=== PATIENT | female | born 1995 | race American Indian/Alaskan Native ===

== ENCOUNTER 2016-06-06 09:53 | Emergency (ER) | payer MEDICAID, OTHER ==
[2016-06-06 09:53] VITALS: BMI 33.0
[2016-06-06 10:08] VITALS: O2SAT 97
--- NOTE | 2016-06-06 10:43 | ED PDOC ---
Arrival/HPI - General Chief Complaint: Lower Extremity Problem/Injury Time Seen by Provider: 06/06/16 10:15 Historian: Patient - History of Present Illness Narrative History of Present Illness (Text): 06/06/16 10:40 20yr old female presents today with right knee pain s/p fall yesterday. pt states she was running for weight loss and tripped and fell landing on the knee. pt states she is having pain with ambulation and flexion of the knee. pt describes the pain as sharp located over the anterior aspect of the knee worse with movement. no calf pain. denies numbness, weakness, tingling in the extremity. no fever/chills. took tylenol for pain without relief. no other complaints. Past Medical History - Provider Review Nursing Documentation Reviewed: Yes - Travel History Have you recently traveled outside [place] w/in the past 3 mons?: No - Past History Past History: No Previous - Infectious Disease Hx of Infectious Diseases: None - Tetanus Immunization Tetanus Immunization: Unknown - Reproductive Menopause: No - Past Medical History Past Medical History: No Previous - Cardiac Hx Cardiac Disorders: No Hx Hypertension: No - Pulmonary Hx Tuberculosis: No - Neurological HX Cerebrovascular Accident: No Hx Seizures: No - Hematological/Oncological Hx Cancer: No - Musculoskeletal/Rheumatological Hx Falls: No - Genitourinary/Gynecological Hx Sexually Transmitted Diseases: No - Psychiatric Hx Bipolar Disorder: Yes Hx Depression: Yes Hx Substance Use: No - Past Surgical History Past Surgical History: No Previous - Anesthesia Hx Anesthesia: Yes - Suicidal Assessment Feels Threatened In Home Enviroment: No Family/Social History - Physician Review Nursing Documentation Reviewed: Yes Family/Social History: Unknown Family HX Smoking Status: Never Smoked Hx Alcohol Use: No Hx Substance Use: No Hx Substance Use Treatment: No Allergies/Home Meds Allergies/Adverse Reactions: Allergies No Known Allergies Allergy (Verified 06/06/16 10:08) Review of Systems - Review of Systems Constitutional: absent: Fatigue, Fevers Respiratory: absent: SOB, Cough Gastrointestinal: absent: Abdominal Pain, Nausea, Vomiting Musculoskeletal: Arthralgias. absent: Back Pain, Neck Pain Skin: absent: Rash, Pruritis Neurological: absent: Headache, Dizziness Physical Exam Vital Signs Reviewed: Yes Vital Signs Temp Pulse Resp BP Pulse Ox 06/06/16 11:03 99.1 F 92 H 18 113/79 97 06/06/16 10:04 99.1 F 92 H 16 113/79 97 Temperature: Afebrile Blood Pressure: Normal Pulse: Regular Respiratory Rate: Normal Appearance: Positive for: Well-Appearing, Non-Toxic, Comfortable Pain Distress: None Mental Status: Positive for: Alert and Oriented X 3 - Systems Exam Head: Present: Atraumatic Mouth: Present: Moist Mucous Membranes Respiratory/Chest: Present: Clear to Auscultation, Good Air Exchange. No: Respiratory Distress, Accessory Muscle Use Cardiovascular: Present: Regular Rate and Rhythm, Normal S1, S2. No: Murmurs Lower Extremity: Present: NORMAL PULSES, Tenderness (right knee; + ttp over anterior and medial aspect of the knee; minimal edema; decreased flexion of the knee; sensation and distal pulses intact. cap refill <2. ), Swelling, Neurovascularly Intact, Capillary Refill < 2 s. No: CALF TENDERNESS, Normal ROM , Erythema, Deformity, Temperature Abnormalties Neurological: Present: GCS=15, Speech Normal Skin: Present: Warm, Dry, Normal Color. No: Rashes Psychiatric: Present: Alert, Oriented x 3 Medical Decision Making ED Course and Treatment: 06/06/16 10:43 Patient nontoxic well-appearing in no distress with stable vital signs X-rays of the knee: No fracture Toradol IM Patient placed in knee immobilizer. Crutches given for ambulation i advised the patient that although the xrays show no fracture; there is still a possibility for ligamentous or tendon injury the patient must see the orthopedist for further evaluation. I discussed all results with patient advised to followup with the orthopedist for the next 2 days. Return if symptoms worsen persist or new symptoms develop Patient verbalizes understanding of discharge instructions and need for immediate followup. Impression: knee pain Motrin every 6 hours as needed for pain Rest, ice, compression, elevation Use crutches for ambulation Followup with the orthopedist within the next 2 days Followup with primary care physician within the next 2 days Return if symptoms worsen persist or if new symptoms develop - RAD Interpretation Radiology Orders: 06/06/16 10:15 KNEE W PATELLA RIGHT 3 VIEW [RAD] Stat - Medication Orders Current Medication Orders: Discontinued Medications Ketorolac Tromethamine (Toradol) 60 mg IM STAT STA Stop: 06/06/16 10:16 Last Admin: 06/06/16 10:49 Dose: 60 mg Disposition/Present on Arrival - Present on Arrival Any Indicators Present on Arrival: No History of DVT/PE: No History of Uncontrolled Diabetes: No Urinary Catheter: No History of Decub. Ulcer: No History Surgical Site Infection Following: None - Disposition Have Diagnosis and Disposition been Completed?: Yes Diagnosis: Knee pain Disposition: HOME/ ROUTINE Disposition Time: 10:44 Patient Plan: Discharge Patient Problems: Current Active Problems Problem Status Onset Knee pain Acute Condition: GOOD Discharge Instructions (ExitCare): Knee Pain (ED) Additional Instructions: Motrin every 6 hours as needed for pain Rest, ice, compression, elevation Use crutches for ambulation Followup with the orthopedist within the next 2 days Followup with primary care physician within the next 2 days Return if symptoms worsen persist or if new symptoms develop Prescriptions: Ibuprofen [Motrin] 600 mg PO Q6H PRN #20 tab PRN Reason: pain/fever reduction Referrals: Jimmy Magana DO [Staff Provider] - Follow up with primary [facility] [place] [Outside] - Follow up with primary Forms: WORK NOTE, SCHOOL NOTE
[2016-06-06 11:03] VITALS: RESP 18
--- NOTE | 2016-06-06 11:58 | RAD ---
PROCEDURE: Right Knee Radiographs. HISTORY: knee pain COMPARISON: None. FINDINGS: BONES: Normal. No fracture. JOINTS: Normal. No osteoarthritis. JOINT EFFUSION: None. OTHER FINDINGS: Normal patella IMPRESSION: Normal radiographs of the right knee.
[2016-06-06 12:20] VITALS: BP 115/71; PULSE 86; TEMP 98.9
== END 2016-06-06 12:35 | disposition home or self-care (01) ==
LOC: ED 09:53
DX: M25.561 Pain in right knee (principal)
CPT/HCPCS: 73562; 96372; 99284; J1885

== ENCOUNTER 2017-01-25 01:12 | Emergency (ER) | payer OTHER ==
[2017-01-25 01:12] VITALS: BMI 33.0
--- NOTE | 2017-01-25 01:28 | ED PDOC ---
Arrival/HPI - General Time Seen by Provider: 01/25/17 01:20 Historian: Patient - History of Present Illness Narrative History of Present Illness (Text): 01/25/17 01:27 Benji Yeboah is a 21 year old female who presents to the Emergency department complaining of back pain status post fall . Patient states she fell twice 4 days prior while at work and after slipping on ice. Patient states she began experiencing left lower back pain radiating to her left buttock for which she was seen at the [facility] satellite ER on 01/23/2017. Patient had CT Lumbar Spine and CT Hip/Pelvis performed which were both negative for any acute processes or fracture and was discharged on Motrin and Flexeril. Patient states she has been taking medication as directed but denies any significant relief and states she is still experiencing pain. Patient able to ambulate without difficulty. Patient denies any fever, chest pain, shortness of breath, nausea, vomiting, urinary symptoms, paresthesias, weakness, headache, or any other complaints. Time/Duration: < week (4 days) Symptom Onset: Gradual Symptom Course: Unchanged Context: Walking, Slipped Past Medical History - Provider Review Nursing Documentation Reviewed: Yes - Past History Past History: No Previous - Infectious Disease Hx of Infectious Diseases: None - Tetanus Immunization Tetanus Immunization: Unknown - Past Medical History Past Medical History: No Previous - Cardiac Hx Cardiac Disorders: No Hx Hypertension: No - Pulmonary Hx Tuberculosis: No - Neurological HX Cerebrovascular Accident: No Hx Seizures: No - Hematological/Oncological Hx Cancer: No - Musculoskeletal/Rheumatological Hx Falls: No - Genitourinary/Gynecological Hx Sexually Transmitted Diseases: No - Psychiatric Hx Bipolar Disorder: Yes Hx Depression: Yes Hx Substance Use: No - Past Surgical History Past Surgical History: No Previous - Anesthesia Hx Anesthesia: Yes - Suicidal Assessment Feels Threatened In Home Enviroment: No Family/Social History - Physician Review Nursing Documentation Reviewed: Yes Family/Social History: Unknown Family HX Smoking Status: Never Smoked Hx Alcohol Use: No Hx Substance Use: No Hx Substance Use Treatment: No Allergies/Home Meds Allergies/Adverse Reactions: Allergies No Known Allergies Allergy (Verified 06/06/16 10:08) Home Medications: Home Meds Medication Instructions Recorded Confirmed Cyclobenzaprine [Flexeril] 01/25/17 Review of Systems - Physician Review All systems were reviewed & negative as marked: Yes - Review of Systems Constitutional: Normal. absent: Fevers Eyes: Normal ENT: Normal Respiratory: Normal. absent: SOB, Cough Cardiovascular: Normal. absent: Chest Pain Gastrointestinal: Normal. absent: Abdominal Pain, Diarrhea, Nausea, Vomiting Genitourinary Female: Normal. absent: Dysuria, Frequency, Hematuria, Urine Output Changes Musculoskeletal: Back Pain. absent: Neck Pain Skin: Normal. absent: Rash Neurological: Normal. absent: Headache, Dizziness Endocrine: Normal Hemo/Lymphatic: Normal Psychiatric: Normal Physical Exam Vital Signs Reviewed: Yes Vital Signs Temp Pulse Resp BP Pulse Ox 01/25/17 01:29 98.8 F 99 H 18 134/82 100 Temperature: Afebrile Blood Pressure: Normal Pulse: Regular Respiratory Rate: Normal Appearance: Positive for: Well-Appearing, Non-Toxic, Comfortable Pain Distress: None Mental Status: Positive for: Alert and Oriented X 3 - Systems Exam Head: Present: Atraumatic, Normocephalic Pupils: Present: PERRL Extroacular Muscles: Present: EOMI Conjunctiva: Present: Normal Mouth: Present: Moist Mucous Membranes Neck: Present: Normal Range of Motion Respiratory/Chest: Present: Clear to Auscultation, Good Air Exchange. No: Respiratory Distress, Accessory Muscle Use Cardiovascular: Present: Regular Rate and Rhythm, Normal S1, S2. No: Murmurs Abdomen: Present: Normal Bowel Sounds. No: Tenderness, Distention, Peritoneal Signs Back: Present: Paraspinal Tenderness (Tenderness to left lower back and left buttock). No: CVA Tenderness, Midline Tenderness Upper Extremity: Present: Normal Inspection. No: Cyanosis, Edema Lower Extremity: Present: Normal Inspection, NORMAL PULSES, Normal ROM, Neurovascularly Intact, Capillary Refill < 2 s. No: Edema, Cyanosis, Tenderness , Swelling, Erythema, Deformity, Temperature Abnormalties Neurological: Present: GCS=15, CN II-XII Intact, Speech Normal, Motor Func Grossly Intact, Normal Sensory Function, Normal Cerebellar Funct, Gait Normal, Memory Normal Skin: Present: Warm, Dry, Normal Color. No: Rashes Psychiatric: Present: Alert, Oriented x 3, Normal Insight, Normal Concentration Medical Decision Making ED Course and Treatment: 01/25/17 01:27 Impression: 21 year old female complaining of left lower back pain radiating to left buttock s/p x 4 days. Differential Diagnosis included but are not limited to: lumbar sprain vs. muscular strain vs. sciatica Plan: -- Percocet -- Toradol -- UA -- Reassess and disposition Prior Visits: Notes and results from previous visits were reviewed. On 06/06/2016, pt was seen in the Emergency department for right knee pain s/p fall.Pt was d/c home. Progress Notes: 01/25/17 01:43 Spoke with medical personnel at [facility] ER. Pt underwent CT Lumbar Spine and CT Hip/Pelvis on 01/23/17 which were all negative for any acute processes/ fracture. 01/25/17 03:07 Pt eloped from Emergency room. - Lab Interpretations Lab Results: Lab Results 01/25/17 01:56: Urine Color Yellow, Urine Appearance Clear, Urine pH 6.0, Ur Specific [place] 1.020, Urine Protein Negative, Urine Glucose (UA) Negative, Urine Ketones Negative, Urine Blood Negative, Urine Nitrate Negative, Urine Bilirubin Negative, Urine Urobilinogen 0.2, Ur Leukocyte Esterase Negative, Urine HCG, Qual Negative - Medication Orders Current Medication Orders: Discontinued Medications Ketorolac Tromethamine (Toradol) 60 mg IM ONCE ONE Stop: 01/25/17 01:54 Last Admin: 01/25/17 02:12 Dose: Not Given Non-Admin Reason: Patient Refused Oxycodone/Acetaminophen (Percocet 5/325 Mg Tab) 1 tab PO STAT STA Stop: 01/25/17 01:54 Last Admin: 01/25/17 02:12 Dose: 1 tab [facility] Pain Assessment Document 01/25/17 02:12 IT (Rec: 01/25/17 02:12 IT [id number]) Pain Reassessment Is this a pain reassessment? No Sleep Is patient sleeping during reassessment? No Presence of Pain Presence of Pain Yes Pain Scale Used Pain Scale Used Numeric Location Left, Right or Bilateral Bilateral Upper or Lower Lower Pain Location Body Site Back Description Description Constant - Scribe Statement The provider has reviewed the documentation as recorded by the Scribсергей Melendez All medical record entries made by the Pettyibсергей were at my direction and personally dictated by me. I have reviewed the chart and agree that the record accurately reflects my personal performance of the history, physical exam, medical decision making, and the department course for this patient. I have also personally directed, reviewed, and agree with the discharge instructions and disposition. Disposition/Present on Arrival - Present on Arrival Any Indicators Present on Arrival: No History of DVT/PE: No History of Uncontrolled Diabetes: No Urinary Catheter: No History of Decub. Ulcer: No History Surgical Site Infection Following: None - Disposition Have Diagnosis and Disposition been Completed?: Yes Diagnosis: Back pain Disposition: ELOPEMENT - ER ONLY Disposition Time: 03:05 Condition: STABLE Referrals: Carlos Silveira MD [Primary Care Provider] - Follow up with primary
[2017-01-25] MEDS ORDERED: Oxycodone/Acetaminophen 5/325 mg Tab PO STA (01:53)
[2017-01-25 02:07] LABS: URINE BILIRUBIN NEGATIVE (NEGATIVE); URINE BLOOD NEGATIVE (NEGATIVE); URINE GLUCOSE (UA) NEGATIVE (NEGATIVE); URINE KETONE NEGATIVE (NEGATIVE); URINE LEUKOCYTE ESTERASE NEGATIVE Leu/uL (NEGATIVE); URINE PROTEIN NEGATIVE mg/dL (<30 mg/dL); URINE UROBILINOGEN 0.2 E.U./dL (<1 E.U./dL)
[2017-01-25 02:12] LABS: URINE APPEARANCE CLEAR (CLEAR); URINE COLOR YELLOW (YELLOW)
[2017-01-25 03:13] VITALS: BP 130/78; PULSE 89; RESP 17; TEMP 98; O2SAT 98
== END 2017-01-25 03:13 | disposition left against medical advice (07) ==
LOC: ED 01:12
DX: M54.5 Low back pain (principal)

== ENCOUNTER 2017-03-21 11:02 | Emergency (ER) | payer OTHER ==
[2017-03-21 11:02] VITALS: BMI 33.0
[2017-03-21 11:24] VITALS: BP 100/61; PULSE 99; RESP 18; TEMP 98.3; O2SAT 98
[2017-03-21] MEDS ORDERED: Promethazine/Cod 6.25mg-10mg/5ml Syr UD PO STA (11:26)
--- NOTE | 2017-03-21 11:29 | ED PDOC ---
Arrival/HPI - General Chief Complaint: Cough, Cold, Congestion Time Seen by Provider: 03/21/17 11:11 Historian: Patient - History of Present Illness Narrative History of Present Illness (Text): 03/21/17 11:26 21yo female with PMhx of Pituitary adenoma present with 5days history of greenish productive cough, sore throat and headache. States chest pain with cough started this morning. Headache with blurry vision also started this morning. States she had an appointment this morning, but couldn't go secondary to her headache. +Photophobia and nausea. She did not take any medication for her symptoms. She denies fever, chills, abdominal pain, vomiting, focal weakness , sick contact, SOB, diaphoresis, any other complaint. Past Medical History - Provider Review Nursing Documentation Reviewed: Yes - Past History Past History: No Previous - Infectious Disease Hx of Infectious Diseases: None - Tetanus Immunization Tetanus Immunization: Unknown - Past Medical History Past Medical History: No Previous - Cardiac Hx Cardiac Disorders: No - Pulmonary Hx Respiratory Disorders: No - Neurological Hx Neurological Disorder: No - HEENT Hx HEENT Disorder: No - Renal Hx Renal Disorder: No - Endocrine/Metabolic Other/Comment: Pituatary Tumor - Hematological/Oncological Hx Blood Disorders: No - Integumentary Hx Dermatological Disorder: No - Musculoskeletal/Rheumatological Hx Musculoskeletal Disorders: No - Gastrointestinal Hx Gastrointestinal Disorders: No - Genitourinary/Gynecological Hx Genitourinary Disorders: No - Psychiatric Hx Bipolar Disorder: Yes Hx Depression: Yes Hx Substance Use: No - Past Surgical History Past Surgical History: No Previous - Anesthesia Hx Anesthesia: Yes - Suicidal Assessment Feels Threatened In Home Enviroment: No Family/Social History - Physician Review Nursing Documentation Reviewed: Yes Family/Social History: Unknown Family HX Smoking Status: Never Smoked Hx Alcohol Use: No Hx Substance Use: No Hx Substance Use Treatment: No Allergies/Home Meds Allergies/Adverse Reactions: Allergies No Known Allergies Allergy (Verified 03/21/17 11:24) Review of Systems - Physician Review All systems were reviewed & negative as marked: Yes - Review of Systems Constitutional: Normal Eyes: Normal ENT: Normal Respiratory: Cough, Sputum. absent: SOB, Wheezing Cardiovascular: Normal Gastrointestinal: Normal Genitourinary Female: Normal Musculoskeletal: Normal Skin: Normal Neurological: Headache. absent: Dizziness, Focal Weakness, Gait Changes, Speech Changes, Facial Droop Endocrine: Normal Hemo/Lymphatic: Normal Psychiatric: Normal Physical Exam Vital Signs Reviewed: Yes Vital Signs Temp Pulse Resp BP Pulse Ox 03/21/17 11:18 98.3 F 99 H 18 100/61 98 Temperature: Afebrile Blood Pressure: Normal Pulse: Regular Respiratory Rate: Normal Appearance: Positive for: Well-Appearing, Non-Toxic, Comfortable Pain Distress: None Mental Status: Positive for: Alert and Oriented X 3 - Systems Exam Head: Present: Atraumatic, Normocephalic Pupils: Present: PERRL Extroacular Muscles: Present: EOMI Conjunctiva: Present: Normal Mouth: Present: Moist Mucous Membranes Neck: Present: Normal Range of Motion Respiratory/Chest: Present: Clear to Auscultation, Good Air Exchange. No: Respiratory Distress, Accessory Muscle Use, Wheezes, Decreased Breath Sounds, Rales, Retracting, Rhonchi Cardiovascular: Present: Regular Rate and Rhythm, Normal S1, S2. No: Murmurs Abdomen: Present: Normal Bowel Sounds. No: Tenderness, Distention, Peritoneal Signs Back: Present: Normal Inspection Upper Extremity: Present: Normal Inspection. No: Cyanosis, Edema Lower Extremity: Present: Normal Inspection. No: Edema Neurological: Present: GCS=15, CN II-XII Intact, Speech Normal, Motor Func Grossly Intact, Normal Sensory Function, Normal Cerebellar Funct, Norm Deep Tendon Reflexes, Gait Normal, Memory Normal, Normal 2Pt Descrimination, Other ( No focal nwurological deficit) Skin: Present: Warm, Dry, Normal Color. No: Rashes Psychiatric: Present: Alert, Oriented x 3, Normal Insight, Normal Concentration Medical Decision Making ED Course and Treatment: 03/21/17 16:52 PT was neurologically stable in ED and ambulatory with normal gait. Chest xray - NAD Head CT - Negative Result was DW the pt. Her headache resolved in ED . she was DC home iwth Zpack and antitussive for URI. Advised to take Tylenol every 6hrs as needed for headache. Referred to her PMD. - Lab Interpretations Lab Results: Lab Results 03/21/17 12:12: Influenza Typ A,B (EIA) Negative for flu a/b 03/21/17 12:10: Grp A Beta Strep Ag Negative - RAD Interpretation Radiology Orders: 03/21/17 11:25 HEAD W/O CONTRAST [CT] Stat CHEST TWO VIEWS (PA/LAT) [RAD] Stat - Medication Orders Current Medication Orders: Discontinued Medications Azithromycin (Zithromax) 500 mg PO STAT STA PRN Reason: Protocol Stop: 03/21/17 13:27 Last Admin: 03/21/17 13:42 Dose: 500 mg Ondansetron HCl (Zofran Odt) 4 mg PO STAT STA Stop: 03/21/17 11:30 Last Admin: 03/21/17 11:58 Dose: 4 mg Promethazine HCl/Codeine (Phenergan/Codeine Oral Syrup) 5 ml PO STAT STA Stop: 03/21/17 11:27 Last Admin: 03/21/17 11:58 Dose: 5 ml Tramadol HCl (Ultram) 50 mg PO STAT STA Stop: 03/21/17 11:26 Last Admin: 03/21/17 11:58 Dose: 50 mg MAR Pain Assessment Document 03/21/17 11:58 DEBORA (Rec: 03/21/17 11:59 DEBORA [id number]) Pain Reassessment Is this a pain reassessment? Yes Presence of Pain Presence of Pain Yes Pain Scale Used Pain Scale Used Numeric Location Pain Location Body [employer] Manager Description Description Sharp Intensity of Pain at present 5 Disposition/Present on Arrival - Present on Arrival Any Indicators Present on Arrival: No History of DVT/PE: No History of Uncontrolled Diabetes: No Urinary Catheter: No History of Decub. Ulcer: No History Surgical Site Infection Following: None - Disposition Have Diagnosis and Disposition been Completed?: Yes Diagnosis: Headache, Cough Disposition: HOME/ ROUTINE Disposition Time: 13:30 Patient Plan: Discharge Condition: STABLE Discharge Instructions (ExitCare): Upper Respiratory Infection (ED), Acute Headache (ED) Additional Instructions: Follow up with your doctor Return to Ed for nay new symptoms Prescriptions: Azithromycin [Zithromax] 250 mg PO DAILY #4 tab Benzonatate [Tessalon Perle] 100 mg PO TID #20 capsule Referrals: Anali Aguiar MD [Primary Care Provider] - Follow up with primary Forms: [employer] (Portuguese)
--- NOTE | 2017-03-21 13:23 | CT ---
PROCEDURE: CT HEAD WITHOUT CONTRAST. HISTORY: headache COMPARISON: None available. TECHNIQUE: Axial computed tomography images were obtained through the head/brain without intravenous contrast. Coronal and sagittal reconstructed images. Radiation dose: Total exam DLP = 994.27 mGy-cm. This CT exam was performed using one or more of the following dose reduction techniques: Automated exposure control, adjustment of the mA and/or kV according to patient size, and/or use of iterative reconstruction technique. FINDINGS: HEMORRHAGE: No intracranial hemorrhage. BRAIN: No mass effect or edema. No atrophy or chronic microvascular ischemic changes. VENTRICLES: Unremarkable. No hydrocephalus. CALVARIUM: Unremarkable. PARANASAL SINUSES: Unremarkable as visualized. No significant inflammatory changes. MASTOID AIR CELLS: Unremarkable as visualized. No inflammatory changes. OTHER FINDINGS: None. IMPRESSION: No acute intracranial abnormalities. No significant findings to account for the clinical presentation.
--- NOTE | 2017-03-21 13:23 | RAD ---
HISTORY: Cough. COMPARISON: No prior. TECHNIQUE: Chest PA and lateral FINDINGS: LUNGS: No active pulmonary disease. PLEURA: No significant pleural effusion identified. No pneumothorax apparent. CARDIOVASCULAR: Normal. OSSEOUS STRUCTURES: No significant abnormalities. VISUALIZED UPPER ABDOMEN: Normal. OTHER FINDINGS: None. IMPRESSION: No active disease.
== END 2017-03-21 13:42 | disposition home or self-care (01) ==
LOC: ED 11:02
DX: R05 Cough (principal); R51 Headache

== ENCOUNTER 2017-04-06 21:59 | Inpatient (IN) | payer MEDICAID, OTHER ==
[2017-04-06 22:04] VITALS: BMI 38.7
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
[2017-04-06 23:46] LABS: ALB/GLOB RATIO 1.2 (1.1-1.8); ALBUMIN 4.2 g/dL (3.0-4.8); ALT/SGPT 21 U/L (7-56); AST/SGOT 28 U/L (14-36); BLOOD UREA NITROGEN 13 mg/dL (7-21); CALCIUM 9.8 mg/dL (8.4-10.5); GFR AFRICAN-AMERICAN > 60; GFR NON-AFRICAN AMERICAN > 60
[2017-04-06 23:47] LABS: HEMOGLOBIN 11.7 g/dL (12.0-16.0); MEAN CELL VOLUME 86.4 fl (80.0-105.0); MEAN CORPUSCULAR HEMOGLOBIN 28.9 pg (25.0-35.0); MEAN CORPUSCULAR HGB CONC 33.4 g/dl (31.0-37.0); RBC 4.05 10^6/uL (3.5-6.1); RED CELL DISTRIBUTION WIDTH 13.4 % (11.5-14.5); WHITE BLOOD COUNT 7.2 10^3/ul (4.5-11.0)
[2017-04-07 00:25] LABS: BARBITURATES, UR NEGATIVE (NEGATIVE); BENZODIAZEPINES, UR NEGATIVE (NEGATIVE); OPIATES, UR NEGATIVE (NEGATIVE); PHENCYCLIDINE, UR NEGATIVE (NEGATIVE)
[2017-04-07 00:30] LABS: ACETAMINOPHEN < 10.0 ug/ml (10.0-20.0); SALICYLATE < 1 mg/dL (2.0-20.0)
--- NOTE | 2017-04-07 07:51 | ED PDOC ---
Physical Exam Vital Signs Reviewed: Yes Vital Signs Temp Pulse Resp BP Pulse Ox 04/07/17 04:10 82 17 125/82 100 04/06/17 23:03 98.2 F 89 18 121/71 97 Temperature: Afebrile Blood Pressure: Normal Pulse: Regular Respiratory Rate: Normal Medical Decision Making ED Course and Treatment: 04/07/17 07:42 Patient endorsed to me by Dr. Menon, pending bed availability for psych admission. 04/07/17 08:35 Spoke with PES worker Belle, states patient will be admitted here under Dr. Claire Rhoades's service for schizoaffective and impulse control disorder. - Lab Interpretations Lab Results: 04/06/17 23:21 04/06/17 23:21 Lab Results 04/06/17 23:34: Urine Opiates Screen Negative, Urine Methadone Screen Negative, Ur Barbiturates Screen Negative, Ur Phencyclidine Scrn Negative, Ur Amphetamines Screen Negative, U Benzodiazepines Scrn Negative, U Oth Cocaine Metabols Negative, U Cannabinoids Screen Negative 04/06/17 23:21: WBC 7.2, RBC 4.05, Hgb 11.7 L, Hct 35.0 L, MCV 86.4, MCH 28.9, MCHC 33.4, RDW 13.4, Plt Count 428, MPV 11.0 04/06/17 23:21: Salicylates < 1 L, Acetaminophen < 10.0 L 04/06/17 23:21: Alcohol, Quantitative < 10 04/06/17 23:21: Sodium 140, Potassium 3.8, Chloride 105, Carbon Dioxide 21, Anion Gap 19, BUN 13, Creatinine 0.8, Est GFR ( Amer) > 60, Est GFR (Non- Af Amer) > 60, Random Glucose 97, Calcium 9.8, Total Bilirubin 0.2, AST 28, ALT 21, Alkaline Phosphatase 61, Total Protein 7.6, Albumin 4.2, Globulin 3.4, Albumin/Globulin Ratio 1.2 - RAD Interpretation Radiology Orders: 04/06/17 23:26 RIBS RIGHT & PA CHEST [RAD] Stat - Medication Orders Current Medication Orders: Discontinued Medications Ibuprofen (Motrin Tab) 600 mg PO STAT STA Stop: 04/07/17 02:54 Last Admin: 04/07/17 03:37 Dose: 600 mg Disposition/Present on Arrival - Present on Arrival Any Indicators Present on Arrival: No History of DVT/PE: No History of Uncontrolled Diabetes: No Urinary Catheter: No History of Decub. Ulcer: No History Surgical Site Infection Following: None - Disposition Have Diagnosis and Disposition been Completed?: Yes Diagnosis: Impulse control disorder, Schizoaffective disorder, depressive type Diagnosis: (Ruled Out): Schizoaffective disorder Disposition: HOSPITALIZED Disposition Time: 08:30 Patient Problems: Current Active Problems Problem Status Onset Impulse control disorder Acute Schizoaffective disorder Acute Condition: STABLE Referrals: Anali Aguiar MD [Primary Care Provider] - Follow up with primary Forms: [email or web address] (Emirati)
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
--- NOTE | 2017-04-07 12:32 | CARD ---
APPROVED REPORT EKG Measurement Heart [id number] <Conclusion> Normal sinus rhythm Normal ECG
[2017-04-07 14:24] LABS: PH,URINE 5.5 (4.7-8.0); URINE BILIRUBIN NEGATIVE (NEGATIVE); URINE BLOOD NEGATIVE (NEGATIVE); URINE GLUCOSE (UA) NEGATIVE (NEGATIVE); URINE LEUKOCYTE ESTERASE NEGATIVE Leu/uL (NEGATIVE); URINE NITRATE NEGATIVE (NEGATIVE); URINE PROTEIN NEGATIVE mg/dL (<30 mg/dL); URINE UROBILINOGEN 0.2 E.U./dL (<1 E.U./dL)
[2017-04-07 14:25] LABS: URINE APPEARANCE CLEAR (CLEAR); URINE COLOR YELLOW (YELLOW)
[2017-04-07 14:29] LABS: HCG,QUALITATIVE URINE NEGATIVE (NEGATIVE)
[2017-04-07 14:49] VITALS: O2SAT 98
[2017-04-07] MEDS ORDERED: DiphenhydrAMINE 50 mg/ml Inj IM PRN ×2 (16:29→18:29)
--- NOTE | 2017-04-07 17:25 | CP.PCM.PCO ---
Addendum Addendum: 04/07/17 17:24 pt has h/o prolactinemia, called to [facility]'s pharmacy [phone] pt was on Cabergoline 0.5 1/2 tab po twice a day will d/c risperdal will start Abilify which is domamin agonist/antagonist 5mg po hs will call to neurology will f/u on prolactin level tomorrow am
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
[2017-04-08] MEDS: OLANZapine 5 mg Disintegrating Tab PO SCH ×2 (11:07→17:29)
--- NOTE | 2017-04-08 11:46 | CP.PCM.CON ---
History of Present Illness - History of Present Illness History of Present Illness: Ms. Yeboah is a 21-year-old woman with a past medical history of prolactinoma, who states that she did not have an MRI before, and is currently admitted for psychiatric illness, recently switched from Risperdal to Abilify, who complains of bilateral visual deficits in the periphery mostly when she has headaches. Currently, she does not have a headache and denied any other neurological symptoms. Review of Systems - Review of Systems All systems: reviewed and no additional remarkable complaints except Past Patient History - Infectious Disease Hx of Infectious Diseases: None - Tetanus Immunizations Tetanus Immunization: Unknown - Past Social History Smoking Status: Never Smoked - CARDIAC Hx Cardiac Disorders: No - PULMONARY Hx Respiratory Disorders: No - NEUROLOGICAL Hx Neurological Disorder: No - HEENT Hx HEENT Problems: No - RENAL Hx Chronic Kidney Disease: No - ENDOCRINE/METABOLIC Other/Comment: Pituatary Tumor - HEMATOLOGICAL/ONCOLOGICAL Hx Blood Disorders: No - INTEGUMENTARY Hx Dermatological Problems: No - MUSCULOSKELETAL/RHEUMATOLOGICAL Hx Musculoskeletal Disorders: No - GASTROINTESTINAL Hx Gastrointestinal Disorders: No - GENITOURINARY/GYNECOLOGICAL Hx Genitourinary Disorders: No - PSYCHIATRIC Hx Bipolar Disorder: Yes Hx Substance Use: No - SURGICAL HISTORY Hx Surgeries: Yes (April 2014 ) - ANESTHESIA Hx Anesthesia: Yes Meds Allergies/Adverse Reactions: Allergies Allergy/AdvReac Type Severity Reaction Status Date / Time No Known Allergies Allergy Verified 03/21/17 11:24 - Medications Medications: Current Medications Aripiprazole (Abilify) 5 mg PO AMHS RENATO Last Admin: 04/08/17 11:06 Dose: 5 mg Chlorpromazine (Thorazine) 50 mg IM Q6H PRN; Protocol PRN Reason: Agitation Last Admin: 04/07/17 18:34 Dose: 50 mg Diphenhydramine HCl (Benadryl) 50 mg IM Q6H PRN PRN Reason: agitaiton Last Admin: 04/07/17 18:39 Dose: 50 mg Diphenhydramine HCl (Benadryl) 50 mg PO Q6H PRN PRN Reason: Agitation Diphenhydramine HCl (Benadryl) 50 mg IM Q6H PRN PRN Reason: Agitation Lorazepam (Ativan) 0.5 mg PO BID RENATO PRN Reason: Protocol Last Admin: 02/28/18 09:09 Dose: 0.5 mg Lorazepam (Ativan) 2 mg IM Q6H PRN; Protocol PRN Reason: Agitation Olanzapine (Zyprexa Zydis) 5 mg PO BID RENATO PRN Reason: Protocol Last Admin: 04/08/17 11:07 Dose: 5 mg Trazodone HCl (Desyrel) 50 mg PO HS PRN PRN Reason: Insomnia Physical Exam - Neurological Exam Neurological exam: Alert, CN II-XII Intact, Normal Gait, Oriented x3, Reflexes Normal Additional comments: Bitemporal heminaposia on confrontation. Results - Vital Signs Recent Vital Signs: Last Vital Signs Temp 97.7 F 04/08/17 07:09 Pulse 90 04/08/17 07:09 Resp 20 04/08/17 07:09 BP 97/51 L 04/08/17 07:09 Pulse Ox 98 04/07/17 14:48 - Labs Result Diagrams: 04/06/17 23:21 04/06/17 23:21 Labs: Laboratory Results - last 24 hr 04/07/17 14:18 Urine Color Yellow Urine Appearance Clear Urine pH 5.5 Ur Specific [place] >= 1.030 Urine Protein Negative Urine Glucose (UA) Negative Urine Ketones Negative Urine Blood Negative Urine Nitrate Negative Urine Bilirubin Negative Urine Urobilinogen 0.2 Ur Leukocyte Esterase Negative Urine HCG, Qual Negative Assessment & Plan (1) Prolactinoma Assessment and Plan: Will obtain MRI of the brain with and without contrast for evaluation. Follow up on prolactin levels and I recommend checking LH/FSH as well as TSH. The remainder of the work-up/treatment can be done as an outpatient for possible surgery, if indicated. Continue Abilify per the psych team. Thank you. Status: Acute Priority: High
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
--- NOTE | 2017-04-08 16:22 | PCM.BM ---
<Karen Zamorano - Last Filed: 04/08/17 16:19> Treatment Plan Problems - Problems identified on initial assessmt ALTERED THOUGHT DELUSIONS Date Initiated: 04/07/17 Time Initiated: 19:00 Assessment reference: NA Status: Active Priority: 1 NON COMPLIANCE Date Initiated: 04/07/17 Time Initiated: 19:00 Assessment reference: NA Status: Active Priority: 2 INEFFECTIVE COPING Date Initiated: 04/07/17 Time Initiated: 19:00 Assessment reference: NA Status: Active Priority: 3 SOCIAL ISOLATION Date Initiated: 04/07/17 Time Initiated: 19:00 Assessment reference: NA Status: Active Priority: 4 Treatment assets and liabiliti Patient Assests: ADL independent, physically healthy Patient Liabilities: poor support system, substance abuse, imparied memory - Milieu Protocol Maintain good personal hygiene: daily Encourage regular showers, daily Remind patient to perform daily oral care, daily Assist patient to perform ADL's Maintain personal safety: every shift Educate patient to report safety concerns to staff, every shift Monitor environment for contraband/sharps Medication safety: Monitor for expected outcome, potential side effects: every shift, Assess barriers to learning: every shift, Assess readiness for medication education: every shift Milieu Narrative: Milieu/structure/supportive therapy Medical consult appreciated, see medical team note for more detailed info SW consultation for discharge plan and social issues pt has h/o prolactinoma, pt was seen by neurology team, consult appreciated pt will have MRI of the brain will f/u on prolactin level as well hormones what neurology team is recommended pt was on the Cabergoline 0.5 1/2 tab po twice a week which could worsen psychosis abilify is dopamine agonist/antagonist, could be a good choice for psychosis and prolactinoma will give zyprexa for psychosis, zydis, for now pt needs to be on two antipsychotics ativan for anxiety zyprexa zydis 5mg po bid for psychosis Family involvement Follow up on labs Will monitor closely Pt was educated about risk/benefits and alternatives of medications, coping strategies (safety plan, suicide prevention), relapse prevention, importance of follow up with psychiatrist and therapist, stay away from drugs/alcohol/smoking Family Contact Family involvement: Patient does not wish Family/SO involvement Family contact: Patient declines to allow family contact at present Discharge/Continuing Care - Education Needs Education Needs: Patient Medication, Patient Diagnosis/Disease Process, Patient Coping Skills, Patient Anger Management skills, Patient Community resources, Patient Activities of Daily Living, Patient Nutrition, Patient Health Practices/ Safety, Patient Personal Hygiene/Grooming, Patient Aftercare Safety Plan - Discharge Discharge Criteria: Tolerates medication w/o severe side effects, Free of Suicidal thoughts, Free of Homicidal thoughts, Free of paranoid thoughts, Free of agitation, Normal sleep pattern, Ability to care for self, Reduction of target symptoms Discharge to:: Home - Treatment Team Participation Patient/Family/SO Statement: Milieu/structure/supportive therapy Medical consult appreciated, see medical team note for more detailed info SW consultation for discharge plan and social issues pt has h/o prolactinoma, pt was seen by neurology team, consult appreciated pt will have MRI of the brain will f/u on prolactin level as well hormones what neurology team is recommended pt was on the Cabergoline 0.5 1/2 tab po twice a week which could worsen psychosis abilify is dopamine agonist/antagonist, could be a good choice for psychosis and prolactinoma will give zyprexa for psychosis, zydis, for now pt needs to be on two antipsychotics ativan for anxiety zyprexa zydis 5mg po bid for psychosis Family involvement Follow up on labs Will monitor closely Pt was educated about risk/benefits and alternatives of medications, coping strategies (safety plan, suicide prevention), relapse prevention, importance of follow up with psychiatrist and therapist, stay away from drugs/alcohol/smoking <Remedios Dodge - Last Filed: 04/08/17 16:28> Family Contact Family contact: Patient agrees to contact <Claire Rhoades - Last Filed: 04/09/17 08:28> - Diagnosis (1) Schizoaffective disorder, depressive type Status: Acute Interventions: 04/09/17 08:27 Psychoeducation supportive therapy Psychopharmacology/adjustment of medications as needed/ monitoring possible side effects Evaluate pt on daily basis Compliance with medications and follow up appointments Long acting medication if pt is noncompliant with pill form Suicide and homicide risk assessment and prevention, coping strategies, safety plan Relapse prevention Reduction of symptoms Improve functional status Possible assertive community treatment Cognitive behavioral therapy Family involvement Possible social skill training as outpatient medical and neurology consults
--- NOTE | 2017-04-09 08:16 | PCM.BM ---
- Diagnosis (1) Schizoaffective disorder, depressive type Status: Acute Interventions: 04/08/17 13:08 Psychoeducation supportive therapy Psychopharmacology/adjustment of medications as needed/ monitoring possible side effects Evaluate pt on daily basis Compliance with medications and follow up appointments Long acting medication if pt is noncompliant with pill form Suicide and homicide risk assessment and prevention, coping strategies, safety plan Relapse prevention Reduction of symptoms Improve functional status Possible assertive community treatment Cognitive behavioral therapy Family involvement Possible social skill training as outpatient medical and neurology consults - Milieu Protocol Milieu Narrative: Milieu/structure/supportive therapy Medical consult appreciated, see medical team note for more detailed info SW consultation for discharge plan and social issues pt has h/o prolactinoma, pt was seen by neurology team, consult appreciated pt will have MRI of the brain will f/u on prolactin level as well hormones what neurology team is recommended pt was on the Cabergoline 0.5 1/2 tab po twice a week which could worsen psychosis abilify is dopamine agonist/antagonist, could be a good choice for psychosis and prolactinoma will give zyprexa for psychosis, zydis, for now pt needs to be on two antipsychotics ativan for anxiety zyprexa zydis 5mg po bid for psychosis Family involvement Follow up on labs Will monitor closely Pt was educated about risk/benefits and alternatives of medications, coping strategies (safety plan, suicide prevention), relapse prevention, importance of follow up with psychiatrist and therapist, stay away from drugs/alcohol/smoking Discharge/Continuing Care - Treatment Team Participation Patient/Family/SO Statement: Milieu/structure/supportive therapy Medical consult appreciated, see medical team note for more detailed info SW consultation for discharge plan and social issues pt has h/o prolactinoma, pt was seen by neurology team, consult appreciated pt will have MRI of the brain will f/u on prolactin level as well hormones what neurology team is recommended pt was on the Cabergoline 0.5 1/2 tab po twice a week which could worsen psychosis abilify is dopamine agonist/antagonist, could be a good choice for psychosis and prolactinoma will give zyprexa for psychosis, zydis, for now pt needs to be on two antipsychotics ativan for anxiety zyprexa zydis 5mg po bid for psychosis Family involvement Follow up on labs Will monitor closely Pt was educated about risk/benefits and alternatives of medications, coping strategies (safety plan, suicide prevention), relapse prevention, importance of follow up with psychiatrist and therapist, stay away from drugs/alcohol/smoking
[2017-04-09] MEDS: OLANZapine 5 mg Disintegrating Tab PO SCH ×2 (09:19→17:33)
[2017-04-09] MEDS ORDERED: Gadodiamide 287 MG/ML VIAL (15ML) IV ONE (12:32)
--- NOTE | 2017-04-09 14:00 | MRI ---
PROCEDURE: MRI BRAIN AND PITUITARY WITH AND WITHOUT CONTRAST HISTORY: history of pituitary mass COMPARISON: 07/01/2016 MRI TECHNIQUE: Multiplanar, multisequence MR images of the pituitary glad were obtained, including high resolution sagittal T2 and dynamic, multiphasic contrast coronal T1 weighted images of the sellar turcica. 15 cc of Omniscan FINDINGS: PITUITARY GLAND: The pituitary is enlarged measuring 10 mm in height by 12 mm with. This is unchanged. This is consistent with a macro adenoma. There is a small linear area of decreased enhancement along the inferior border of the pituitary which could represent an area of necrosis versus a microadenoma. This is less conspicuous than it was on the previous exam OPTIC CHIASM: Unremarkable. SUPRASELLAR CISTERN: Unremarkable. CAVERNOUS SINUSES: Unremarkable. BRAIN: The brain parenchyma is normal. The ventricles and sulci are normal in size. VENTRICLES: Unremarkable. No hydrocephalus. OTHER FINDINGS: None. IMPRESSION: Probable macro adenoma of the pituitary. This is unchanged
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
[2017-04-09 16:25] LABS: FSH 4.9 mIU/mL; PROLACTIN 16.1 ng/mL (3.0-18.9)
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
[2017-04-10] MEDS: OLANZapine 5 mg Disintegrating Tab PO SCH ×3 (09:02→17:32)
--- NOTE | 2017-04-10 10:08 | RAD ---
PROCEDURE: Radiographs of the left elbow. HISTORY: left distal arm pain COMPARISON: No prior. FINDINGS: BONES: Normal. No fracture. JOINTS: Normal. No osteoarthritis. SOFT TISSUES: Normal. JOINT EFFUSION: None. OTHER FINDINGS: None IMPRESSION: Unremarkable radiographs of the left elbow.
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
[2017-04-11] MEDS: OLANZapine 5 mg Disintegrating Tab PO SCH ×3 (08:08→17:28)
--- NOTE | 2017-04-11 09:18 | PCM.PYCHPN ---
Psychiatric Progress Note - Psychiatric Progress Note Patient seen today, length of contact: 25 min Patient Chief Complaint: "okay, feeling sad" Problems Identified/Issues Discussed: I reviewed assessment and recent notes. Patient was interviewed at bedside. She is calm, fairly groomed and cooperative. Today she reports feeling "okay, feeling sad" however doesn't feel like she is getting better. Her eye contact is poor and affect is constricted and withdrawn. She indicates that she feels neither hopeful or hopeless. States "I am homesick to be with my mom and dad". Patient denies hallucinations and delusions were not elicited. Her responses are relevant to questioning. Patient is compliant with medications and denies side effects, discomfort or pain. Sleep was in and out. Staff notes indicate that patient remains paranoid and delusional. She has made multiple accusations about various individuals around her including her family. She refused Abilify last night and didn't attend group. There were no major behavioral issues overnight. Diagnostic Results: Schizophrenia to be ruled out Medication Change: No (zyprexa incresed, abilify for prolactinoma) Medical Record Reviewed: Yes Mental Status Examination - Cognitive Function Orientation: Person, Place, Situation Memory: Impaired Attention: Poor Concentration: Poor Association: Loose Fund of Knowledge: Poor - Mood Mood: Depressed ("okay, feeling sad" ), Anxious - Affect Affect: Flat - Formal Thought Process Formal Thought Process: Hallucinations, Delusions, Paranoia, Loosening of associations, Circumstantial - Suicidal Ideation Suicidal Ideation: No - Homicidal Ideation Homicidal Ideation: No Goal/Treatment Plan - Goal/Treatment Plan Need for Continued Stay: Remain at risks for inpatient hospitalization, Severe depression anxiety, Discharge may exacerbated symptoms, Severe functional impairment Progress Toward Problem(s) and Goals/Treatment Plan: c/w current tx and plan No new weekend labs thus far Vitals reviewed and noted below: Selected Entries 04/11/17 07:13 Temperature 97.8 F Pulse Rate 82 Respiratory 18 Rate Blood Pressure 100/60 Estimated Date of D/C: 04/17/17 (we will monitor closely)
[2017-04-12] MEDS ORDERED: Alum-Mag Hydrox-Simethicone Susp (30 mL) PO PRN (01:43)
[2017-04-12] MEDS: OLANZapine 5 mg Disintegrating Tab PO SCH ×3 (08:41→18:35)
--- NOTE | 2017-04-12 09:01 | PCM.PYCHPN ---
Psychiatric Progress Note - Psychiatric Progress Note Patient seen today, length of contact: 25 min Patient Chief Complaint: "okay, feeling better, the meds keep me calmer" Problems Identified/Issues Discussed: I reviewed recent notes and patient was interviewed at bedside. She is calm, fairly groomed and superficially cooperative. Today she reports feeling "okay, feeling better, the meds keep me calmer". She feels her anxiety and anger aren' t as intense. Patient appears childlike when she tells me that her mothers visit improved her mood yesterday. Her eye contact remains poor and affect is constricted and withdrawn. Patient denies hallucinations and her responses are brief and relevant to questioning. Patient is compliant with medications and denies side effects, discomfort or pain except for headache this morning. Sleep was "up and down", unchanged from yesterday. Staff notes indicate that patient continues to be labile with poor frustration tolerance. She appeared to have a beneficial individual therapy session Thursday with renewed commitment "to make amends with staff, learn ways of moving forward". However she became upset later when staff had to be present during her fathers visit. Apparently she became agitated and eventually told her father to leave. Staff notes from the end of the week indicate patient was paranoid and delusions. She made multiple accusations about various individuals her including family and staff. She took Abilify during the day yesterday and last night but refused it on Thursday night. There were no other behavioral issues overnight. Diagnostic Results: Schizophrenia to be ruled out Medication Change: No (zyprexa incresed, abilify for prolactinoma) Medical Record Reviewed: Yes Mental Status Examination - Cognitive Function Orientation: Person, Place, Situation Memory: Impaired Attention: Poor Concentration: Poor Association: Loose Fund of Knowledge: Poor - Mood Mood: Depressed ( "okay, feeling better, the meds keep me calmer"), Anxious - Affect Affect: Flat - Formal Thought Process Formal Thought Process: Hallucinations (denied all weekend), Delusions, Paranoia , Loosening of associations, Circumstantial - Suicidal Ideation Suicidal Ideation: No - Homicidal Ideation Homicidal Ideation: No Goal/Treatment Plan - Goal/Treatment Plan Need for Continued Stay: Remain at risks for inpatient hospitalization, Severe depression anxiety, Discharge may exacerbated symptoms, Severe functional impairment Progress Toward Problem(s) and Goals/Treatment Plan: c/w current tx and plan No new weekend labs Vitals reviewed and noted below: Selected Entries 04/12/17 06:52 Temperature 98.1 F Pulse Rate 91 H Respiratory 18 Rate Blood Pressure 112/71 Estimated Date of D/C: 04/17/17 (we will monitor closely)
[2017-04-13] MEDS: OLANZapine 5 mg Disintegrating Tab PO SCH ×2 (08:52→12:35)
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
[2017-04-13] MEDS: OLANZapine 10 mg Disintegrating Tab PO SCH (21:04)
[2017-04-14] MEDS: OLANZapine 10 mg Disintegrating Tab PO SCH ×2 (09:02→21:11)
--- NOTE | 2017-04-14 14:29 | PCM.BM ---
<Dorian Tapia - Last Filed: 04/14/17 14:27> Treatment Plan Problems - Problems identified on initial assessmt ALTERED THOUGHT DELUSIONS Date Initiated: 04/07/17 Time Initiated: 19:00 Assessment reference: NA Status: Active Priority: 1 NON COMPLIANCE Date Initiated: 04/07/17 Time Initiated: 19:00 Assessment reference: NA Status: Active Priority: 2 INEFFECTIVE COPING Date Initiated: 04/07/17 Time Initiated: 19:00 Assessment reference: NA Status: Active Priority: 3 SOCIAL ISOLATION Date Initiated: 04/07/17 Time Initiated: 19:00 Assessment reference: NA Status: Active Priority: 4 Treatment assets and liabiliti Patient Assests: ADL independent, physically healthy Patient Liabilities: poor support system, substance abuse, imparied memory - Milieu Protocol Maintain good personal hygiene: daily Encourage regular showers, daily Remind patient to perform daily oral care, daily Assist patient to perform ADL's Maintain personal safety: every shift Educate patient to report safety concerns to staff, every shift Monitor environment for contraband/sharps Medication safety: Monitor for expected outcome, potential side effects: every shift, Assess barriers to learning: every shift, Assess readiness for medication education: every shift Milieu Narrative: Milieu/structure/supportive therapy Medical consult appreciated, see medical team note for more detailed info SW consultation for discharge plan and social issues pt has h/o prolactinoma, pt was seen by neurology team, consult appreciated MRI of the brain Don 04/09/2017, follow-up result will f/u on prolactin level as well hormones what neurology team is recommended pt was on the Cabergoline 0.5 1/2 tab po twice a week which could worsen psychosis abilify is dopamine agonist/antagonist, could be a good choice for psychosis and prolactinoma will give zyprexa zydis 10mg po amhs for psychosis for now pt needs to be on two antipsychotics zyprexa and abilify ativan for anxiety Family involvement Follow up on labs Will monitor closely Pt was educated about risk/benefits and alternatives of medications, coping strategies (safety plan, suicide prevention), relapse prevention, importance of follow up with psychiatrist and therapist, stay away from drugs/alcohol/smoking Family Contact Family contact: Patient agrees to contact Discharge/Continuing Care - Education Needs Education Needs: Patient Medication, Patient Diagnosis/Disease Process, Patient Coping Skills, Patient Anger Management skills, Patient Community resources, Patient Activities of Daily Living, Patient Nutrition, Patient Health Practices/ Safety, Patient Personal Hygiene/Grooming, Patient Aftercare Safety Plan - Discharge Discharge Criteria: Tolerates medication w/o severe side effects, Free of Suicidal thoughts, Free of Homicidal thoughts, Free of paranoid thoughts, Free of agitation, Normal sleep pattern, Ability to care for self, Reduction of target symptoms Discharge to:: Home - Additional Comments 04/14/17 14:28 Thought process improved, focus is better, good attention span - Treatment Team Participation Patient/Family/SO Statement: Milieu/structure/supportive therapy Medical consult appreciated, see medical team note for more detailed info SW consultation for discharge plan and social issues pt has h/o prolactinoma, pt was seen by neurology team, consult appreciated MRI of the brain Don 04/09/2017, follow-up result will f/u on prolactin level as well hormones what neurology team is recommended pt was on the Cabergoline 0.5 1/2 tab po twice a week which could worsen psychosis abilify is dopamine agonist/antagonist, could be a good choice for psychosis and prolactinoma will give zyprexa zydis 10mg po amhs for psychosis for now pt needs to be on two antipsychotics zyprexa and abilify ativan for anxiety Family involvement Follow up on labs Will monitor closely Pt was educated about risk/benefits and alternatives of medications, coping strategies (safety plan, suicide prevention), relapse prevention, importance of follow up with psychiatrist and therapist, stay away from drugs/alcohol/smoking Discussed with Family/SO: No Was Patient/Family/SO present at Treatment Team Meeting: No Treatment Plan Review - Problem ALTERED THOUGHT DELUSIONS Time Initiated: 19:00 NON COMPLIANCE Time Initiated: 19:00 INEFFECTIVE COPING Time Initiated: 19:00 SOCIAL ISOLATION Time Initiated: 19:00 <Claire Rhoades A - Last Filed: 04/14/17 15:14> - Diagnosis (1) Schizoaffective disorder, depressive type Status: Acute Interventions: 04/14/17 15:14 psychosis is much better pt is compliant with meds and unit rules and regulations pt was seen by neurologist pt deems ready for d/c tomorrow as per family pt is better denies Suicidal or homicidal ideation, does not appear to be in any distress <Remedios Dodge - Last Filed: 04/14/17 15:28> Family Contact Family involvement: Family/SO is involved Family contact: Patient agrees to contact Family contact name: Saira Aguila(mother) Family contacted how many times per week?: 2 <Lotus Snyder - Last Filed: 04/16/17 11:25>
--- NOTE | 2017-04-14 15:21 | PCM.PYCHPN ---
Psychiatric Progress Note - Psychiatric Progress Note Patient seen today, length of contact: 30min Patient Chief Complaint: "I am doing okay, I hope everyone would have a blessed day" Problems Identified/Issues Discussed: Suicide/ homicide prevention, past psychiatric h/o, current psychiatric symptoms , medical problems, risk/benefits and alternatives of medications, medications compliance, coping strategies, substance abuse h/o, relapse prevention, importance of follow up with psychiatrist and therapist, discharge plan Medical Problems: h/o prolactinoma Diagnostic Results: 04/06/17 23:21 04/06/17 23:21 Lab Results 04/09/17 08:20: TSH 3rd Generation 0.93 04/07/17 14:18: Urine Color Yellow, Urine Appearance Clear, Urine pH 5.5, Ur Specific [place] >= 1.030, Urine Protein Negative, Urine Glucose (UA) Negative, Urine Ketones Negative, Urine Blood Negative, Urine Nitrate Negative, Urine Bilirubin Negative, Urine Urobilinogen 0.2, Ur Leukocyte Esterase Negative, Urine HCG, Qual Negative 04/06/17 23:34: Urine Opiates Screen Negative, Urine Methadone Screen Negative, Ur Barbiturates Screen Negative, Ur Phencyclidine Scrn Negative, Ur Amphetamines Screen Negative, U Benzodiazepines Scrn Negative, U Oth Cocaine Metabols Negative, U Cannabinoids Screen Negative 04/06/17 23:21: WBC 7.2, RBC 4.05, Hgb 11.7 L, Hct 35.0 L, MCV 86.4, MCH 28.9, MCHC 33.4, RDW 13.4, Plt Count 428, MPV 11.0 04/06/17 23:21: Salicylates < 1 L, Acetaminophen < 10.0 L 04/06/17 23:21: Alcohol, Quantitative < 10 04/06/17 23:21: Sodium 140, Potassium 3.8, Chloride 105, Carbon Dioxide 21, Anion Gap 19, BUN 13, Creatinine 0.8, Est GFR ( Amer) > 60, Est GFR (Non- Af Amer) > 60, Random Glucose 97, Calcium 9.8, Total Bilirubin 0.2, AST 28, ALT 21, Alkaline Phosphatase 61, Total Protein 7.6, Albumin 4.2, Globulin 3.4, Albumin/Globulin Ratio 1.2 Vital Signs Temp Pulse Resp BP Pulse Ox 04/09/17 07:04 98.0 F 90 18 76/36 L 04/08/17 16:45 90 96/50 L 04/08/17 07:09 97.7 F 90 20 97/51 L 04/07/17 16:13 18 04/07/17 14:48 98.6 F 87 18 105/47 L 98 04/07/17 04:10 82 17 125/82 100 04/06/17 23:03 98.2 F 89 18 121/71 97 Abnormal Lab Results 04/09/17 08:20 FSH 3rd Generation 4.9 Luteinizing Hormone 9.5 Prolactin 16.1 Temp Pulse Resp BP Pulse Ox 97.8 F 91 H 18 105/75 98 04/13/17 06:57 04/13/17 06:57 04/13/17 06:57 04/13/17 06:57 04/07/17 14:48 Temp Pulse Resp BP Pulse Ox 97.8 F 88 18 145/60 98 04/14/17 11:13 04/14/17 11:13 04/14/17 11:13 04/14/17 11:13 04/13/17 17:56 DSM 5 Symptoms Update: Shortly pt is 21yo Female with h/o psychosis/schizophrenia, one previous psychiatric admission to this facility about two years ago, patient has h/o noncompliance with medications, follow up appointments, patient was brought by EMS after [place] [employer] ([facility]) called them to transport patient from [facility] to ED for a Psych evaluation for bizarre and psychotic behavior. In the ED pt presented to be paranoid, disorganized, internally preoccupied, pt reported that she was not compliant with medications and follow up appointments, pt requires further evaluation/stabilization/ medication titration. As per RN report, pt is better, no agitation, no aggression, pt is pleasant, socializing with others. pt tolerates meds well, no side effects observed or reported, AIMS 0, no EPS. pt reported that she likes meds she is currently on, denied any side effects, pt is paranoid, guarded, but more pleasant. pt denied being depressed, denied thoughts of harming self or others, pt is less psychotic, pt was less paranoid. Patient tolerates medications well, no side effects observed or reported, aims 0 , no EPS. prescient: Schizophrenia to be ruled out Medication to psychosis Medication Change: No (zyprexa incresed yesterday) Medical Record Reviewed: Yes Consults ordered or reviewed: medical consult appreciated Neuro Consult: Dr. 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, f/u MRI MRI: macroadenoma of pituitary, unchanged f/u Neuro recommendations Mental Status Examination - Cognitive Function Orientation: Person, Place, Situation Memory: Impaired Attention: Poor (improved) Concentration: Poor (improved) Association: Loose (improved) Fund of Knowledge: Poor - Mood Mood: Depressed ("I feel better"), Anxious (less anxious) - Affect Affect: Flat - Formal Thought Process Formal Thought Process: Hallucinations (denied ), Delusions (less ), Paranoia ( less), Circumstantial - Suicidal Ideation Suicidal Ideation: No - Homicidal Ideation Homicidal Ideation: No Goal/Treatment Plan - Goal/Treatment Plan Need for Continued Stay: Remain at risks for inpatient hospitalization, Severe depression anxiety, Discharge may exacerbated symptoms, Severe functional impairment Progress Toward Problem(s) and Goals/Treatment Plan: Milieu/structure/supportive therapy Medical consult appreciated, see medical team note for more detailed info SW consultation for discharge plan and social issues pt has h/o prolactinoma, pt was seen by neurology team, consult appreciated MRI of the brain Don 04/09/2017, follow-up result will f/u on prolactin level as well hormones what neurology team is recommended pt was on the Cabergoline 0.5 1/2 tab po twice a week which could worsen psychosis abilify is dopamine agonist/antagonist, could be a good choice for psychosis and prolactinoma will give zyprexa zydis 10mg po amhs for psychosis for now pt needs to be on two antipsychotics zyprexa and abilify ativan for anxiety Family involvement Follow up on labs Will monitor closely Pt was educated about risk/benefits and alternatives of medications, coping strategies (safety plan, suicide prevention), relapse prevention, importance of follow up with psychiatrist and therapist, stay away from drugs/alcohol/smoking Estimated Date of D/C: 04/15/17 (we will monitor closely)
[2017-04-15 07:22] VITALS: BP 106/64; PULSE 102; RESP 20; TEMP 98.2
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
== END 2017-04-15 10:08 | disposition home or self-care (01) | DRG 430 ==
LOC: ED 21:59 → ERH 04-07 09:00 → PSYC 04-07 15:23
PROVIDERS: ADMIT Psychiatry & Neurology Psychiatry; ATTEND Psychiatry & Neurology Psychiatry
DX: F25.1 Schizoaffective disorder, depressive type (principal); R45.851 Suicidal ideations; Z91.14 Patient's other noncompliance with medication regimen; D35.2 Benign neoplasm of pituitary gland; D64.9 Anemia, unspecified; S53.402A Unspecified sprain of left elbow, initial encounter; E66.9 Obesity, unspecified; Z68.38 Body mass index [BMI] 38.0-38.9, adult; F41.9 Anxiety disorder, unspecified; F81.9 Developmental disorder of scholastic skills, unspecified; R48.0 Dyslexia and alexia; R07.81 Pleurodynia; Y09 Assault by unspecified means; Y92.9 Unspecified place or not applicable; Z81.8 Family history of other mental and behavioral disorders

== ENCOUNTER 2017-06-13 17:47 | Inpatient (IN) | payer MEDICAID, OTHER ==
--- NOTE | 2017-06-13 18:01 | ED PDOC ---
Arrival/HPI - General Time Seen by Provider: 06/13/17 17:53 Historian: Patient - History of Present Illness Narrative History of Present Illness (Text): 06/13/17 17:56 21 y/o female, pmh including prolactinoma, psychiatric history including depression/schizophreniform/shchizoaffective, nkda, biba c/o suicidal ideation with over dose on ativan and abilify. Pt. show me the bottle from 04/14/2017 with 30 tablets of 1mg ativan which she stated that she take 1mg po bid, another bottle is abilify 10mg po half tablet po qd which she stated that she takes it daily. Pt. stated that she took handful dose of the ativan and abilify with unable to characterize the quantity because she argued with her mother and about to be homeless. Pt. stated that she is depress, admits suicidal, no homicidal ideation, no chest pain, no rash, no other medical or psychological complaints. Past Medical History - Provider Review Nursing Documentation Reviewed: Yes - Past History Past History: No Previous - Infectious Disease Hx of Infectious Diseases: None - Tetanus Immunization Tetanus Immunization: Unknown - Past Medical History Past Medical History: No Previous - Cardiac Hx Cardiac Disorders: No - Pulmonary Hx Respiratory Disorders: No - Neurological Hx Neurological Disorder: No - HEENT Hx HEENT Disorder: No - Renal Hx Renal Disorder: No - Endocrine/Metabolic Other/Comment: Pituatary Tumor - Hematological/Oncological Hx Blood Disorders: No - Integumentary Hx Dermatological Disorder: No - Musculoskeletal/Rheumatological Hx Musculoskeletal Disorders: No - Gastrointestinal Hx Gastrointestinal Disorders: No - Genitourinary/Gynecological Hx Genitourinary Disorders: No - Psychiatric Hx Bipolar Disorder: Yes Hx Substance Use: No - Past Surgical History Past Surgical History: No Previous - Anesthesia Hx Anesthesia: Yes - Suicidal Assessment Feels Threatened In Home Enviroment: No Family/Social History - Physician Review Nursing Documentation Reviewed: Yes Family/Social History: Unknown Family HX Smoking Status: Never Smoked Hx Alcohol Use: No Hx Substance Use: No Hx Substance Use Treatment: No Allergies/Home Meds Allergies/Adverse Reactions: Allergies No Known Allergies Allergy (Verified 06/13/17 18:18) Review of Systems - Review of Systems Constitutional: absent: Fatigue, Fevers Eyes: absent: Vision Changes ENT: absent: Rhinorrhea Respiratory: absent: Cough, Sputum, Wheezing Cardiovascular: absent: Chest Pain Gastrointestinal: absent: Abdominal Pain, Diarrhea, Nausea, Vomiting Musculoskeletal: absent: Arthralgias, Myalgias Skin: absent: Rash, Pruritis Neurological: absent: Headache, Dizziness Endocrine: absent: Diaphoresis Psychiatric: absent: Anxiety, Depression Physical Exam Vital Signs Reviewed: Yes Vital Signs Temp Pulse Resp BP Pulse Ox 06/13/17 21:18 86 19 121/76 97 06/13/17 18:54 98.7 F 86 18 132/78 100 Temperature: Afebrile Blood Pressure: Normal Pulse: Regular Respiratory Rate: Normal Appearance: Positive for: Well-Appearing, Non-Toxic, Comfortable Pain Distress: None Mental Status: Positive for: Alert and Oriented X 3 - Systems Exam Head: Present: Atraumatic, Normocephalic Pupils: Present: PERRL Extroacular Muscles: Present: EOMI Conjunctiva: Present: Normal Ears: Present: NORMAL TM, Normal Canal. No: Erythema Mouth: Present: Moist Mucous Membranes Pharnyx: No: ERYTHEMA, EXUDATE, TONSILS ENLARGED Nose (External): Present: Atraumatic. No: Abrasion, Contusion, Laceration Nose (Internal): Present: Normal Inspection, No Active Bleeding. No: Rhinorrhea , Septal Hematoma, Epistaxis Neck: Present: Normal Range of Motion. No: MIDLINE TENDERNESS, Lymphadenopathy Respiratory/Chest: Present: Clear to Auscultation, Good Air Exchange. No: Respiratory Distress, Accessory Muscle Use, Wheezes Cardiovascular: Present: Regular Rate and Rhythm, Normal S1, S2. No: Murmurs Abdomen: No: Tenderness, Distention, Peritoneal Signs Back: Present: Normal Inspection Upper Extremity: Present: Normal Inspection. No: Cyanosis, Edema Lower Extremity: Present: Normal Inspection. No: Edema Neurological: Present: GCS=15, Speech Normal, Motor Func Grossly Intact, Gait Normal, Memory Normal Skin: Present: Warm, Dry, Normal Color. No: Rashes Psychiatric: Present: Alert, Oriented x 3, Normal Insight, Normal Concentration Medical Decision Making ED Course and Treatment: 06/13/17 18:12 -labs/ua -ekg -cxr -IVF -Compounding Scaler -Poison control contacted -Observe and reassess 06/13/17 19:08 -Poison control contacted and no additional test or emergent intervention indicated at this time. 06/13/17 20:33 -Pt. is aox3, easily arousable from sleeping, vitally stable, HR 85 at rest and BP 100/72 -EKG: NSR @ 81 BPM, no ST elevation or depression, no T wave inversion -Chest xray: no active disease -Labs show no acute finding -Acetaminophen/salicyclate/alcohol level within normal limit -I spoke to poison control, agreed to keep the patient for observation, can not be medically clear at this time. -I Spoke to the medical billing coordinator Dr. Blevins which he will talk to Dr. Mast about the case/labs/radiology result discuss, will continue the care. -Case discussed with Dr. Patterson, he will put in the admission for ICU to be observed for possible over dose. - Critical Care Critical Care Minutes: 30 minutes Critical Care Time: Other (possible over dose) Narrative Critical Care (Text): 06/14/17 14:35 panel monitor, Poison control, ICU, close monitoring - Lab Interpretations Lab Results: 06/13/17 17:55 06/13/17 17:55 Lab Results 06/13/17 19:15: Beta HCG, Quant < 2.39 06/13/17 17:55: TSH 3rd Generation 2.36 06/13/17 17:55: Phosphorus 4.1, Magnesium Cancelled, Lactate Dehydrogenase 550, Total Creatine Kinase 335 H, CK-MB (CK-2) 1.6, CK-MB (CK-2) % Cancelled, Troponin I < 0.01 06/13/17 17:55: WBC 6.9, RBC 4.06, Hgb 11.2 L, Hct 34.8 L, MCV 85.7, MCH 27.6, MCHC 32.2, RDW 13.7, Plt Count 435, MPV 10.8, Gran % 51.0, Lymph % (Auto) 40.8 H , Garden % (Auto) 6.1 H, Eos % (Auto) 2.0, Baso % (Auto) 0.1, Gran # 3.54, Lymph # (Auto) 2.8, Garden # (Auto) 0.4, Eos # (Auto) 0.1, Baso # (Auto) 0.01 06/13/17 17:55: Alcohol, Quantitative < 10 06/13/17 17:55: Salicylates < 1 L, Acetaminophen < 10.0 L 06/13/17 17:55: Sodium 148, Potassium 3.7, Chloride 108 H, Carbon Dioxide 26, Anion Gap 18, BUN 9, Creatinine 0.8, Est GFR ( Amer) > 60, Est GFR (Non- Af Amer) > 60, Random Glucose 85, Calcium 9.3, Magnesium 2.0, Total Bilirubin 0.2, AST 32, ALT 24, Alkaline Phosphatase 59, Total Protein 7.5, Albumin 4.2, Globulin 3.3, Albumin/Globulin Ratio 1.3 06/13/17 17:55: PT 11.5, INR 1.01, APTT 31.0 - RAD Interpretation Radiology Orders: 06/13/17 18:21 CHEST PORTABLE [RAD] Stat - EKG Interpretation EKG Interpretation (Text): 06/13/17 18:23 -EKG: NSR @ 81 BPM, no ST elevation or depression, no T wave inversion Interpreted by ED Physician: Yes Type: 12 lead EKG - Medication Orders Current Medication Orders: Enoxaparin Sodium (Lovenox) 40 mg SC DAILY RENATO PRN Reason: Protocol Last Admin: 06/14/17 10:10 Dose: Not Given Non-Admin Reason: Patient Refused Sodium Chloride (Sodium Chloride 0.9%) 1,000 mls @ 100 mls/hr IV .Q10H RENATO Lorazepam (Ativan) 1 mg IVP Q2H PRN; Protocol PRN Reason: Anxiety Pantoprazole Sodium (Protonix Ec Tab) 40 mg PO 0600 RENATO Last Admin: 06/14/17 08:17 Dose: 40 mg Discontinued Medications Sodium Chloride (Sodium Chloride 0.9%) 1,000 mls @ 100 mls/hr IV .Q10H RENATO Last Admin: 06/14/17 08:18 Dose: 100 mls/hr eMAR Start Stop Document 06/14/17 08:18 [facility] (Rec: 06/14/17 08:19 [facility] [id number]) Intravenous Solution Start Date 06/13/17 Start Time 23:00 End Date 06/14/17 End time 10:00 Total Infusion Time 660 Sodium Chloride (Sodium Chloride 0.9%) 1,000 mls @ 999 mls/hr IV .Q1H1M STA Stop: 06/13/17 19:21 Last Admin: 06/13/17 20:48 Dose: 999 mls/hr eMAR Start Stop Document 06/13/17 20:48 CNR (Rec: 06/13/17 20:48 CNR [id number]) Intravenous Solution Start Date 06/13/17 Start Time 20:48 - PA / ADMIN SECRETARY / Resident Statement / has reviewed & agrees with the documentation as recorded. (--) Disposition/Present on Arrival - Present on Arrival Any Indicators Present on Arrival: No History of DVT/PE: No History of Uncontrolled Diabetes: No Urinary Catheter: No History of Decub. Ulcer: No History Surgical Site Infection Following: None - Disposition Have Diagnosis and Disposition been Completed?: Yes Diagnosis: Depression with suicidal ideation, Overdose Disposition: HOSPITALIZED Disposition Time: 18:33 Patient Plan: ICU, Observation Patient Problems: Current Active Problems Problem Status Onset Depression with suicidal ideation Acute Overdose Acute Condition: STABLE
[2017-06-13 18:18] VITALS: BMI 36.0
[2017-06-13] MEDS ORDERED: Sodium Chloride 0.9% 1,000 ML IV STA (18:21)
[2017-06-13] MEDS ORDERED: Sodium Chloride 0.9% 1,000 ML IV SCH ×2 (18:30→21:45)
[2017-06-13 19:22] LABS: ACETAMINOPHEN < 10.0 ug/ml (10.0-20.0); ALB/GLOB RATIO 1.3 (1.1-1.8); ALBUMIN 4.2 g/dL (3.0-4.8); ALT/SGPT 24 U/L (7-56); AST/SGOT 32 U/L (14-36); BLOOD UREA NITROGEN 9 mg/dL (7-21); CALCIUM 9.3 mg/dL (8.4-10.5); GFR AFRICAN-AMERICAN > 60; GFR NON-AFRICAN AMERICAN > 60; SALICYLATE < 1 mg/dL (2.0-20.0)
[2017-06-13 19:34] LABS: BASO # 0.01 K/mm3 (0.0-2.0); BASO % 0.1 % (0.0-3.0); EOS # 0.1 (0.0-0.7); GRAN # 3.54 (1.4-6.5); HEMOGLOBIN 11.2 g/dL (12.0-16.0); LYMPH # 2.8 (1.2-3.4); LYMPH % 40.8 % (22.0-35.0); MEAN CELL VOLUME 85.7 fl (80.0-105.0); MEAN CORPUSCULAR HEMOGLOBIN 27.6 pg (25.0-35.0); MEAN CORPUSCULAR HGB CONC 32.2 g/dl (31.0-37.0); MEAN PLATELET VOLUME 10.8 fl (7.0-11.0); MONO # 0.4 (0.1-0.6); MONO % 6.1 % (1.0-6.0); RBC 4.06 10^6/uL (3.5-6.1); RED CELL DISTRIBUTION WIDTH 13.7 % (11.5-14.5); WHITE BLOOD COUNT 6.9 10^3/ul (4.5-11.0)
[2017-06-13 19:43] LABS: INR 1.01 (0.93-1.08); PROTHROMBIN TIME 11.5 SECONDS (9.4-12.5)
[2017-06-13 22:15] LABS: URINE BILIRUBIN NEGATIVE (NEGATIVE); URINE BLOOD NEGATIVE (NEGATIVE); URINE GLUCOSE (UA) NEGATIVE (NEGATIVE); URINE LEUKOCYTE ESTERASE NEGATIVE Leu/uL (NEGATIVE); URINE PROTEIN TRACE mg/dL (<30 mg/dL)
[2017-06-13 22:17] LABS: URINE APPEARANCE CLEAR (CLEAR); URINE COLOR YELLOW (YELLOW)
[2017-06-13 22:25] LABS: BARBITURATES, UR NEGATIVE (NEGATIVE); BENZODIAZEPINES, UR NEGATIVE (NEGATIVE); OPIATES, UR NEGATIVE (NEGATIVE); PHENCYCLIDINE, UR NEGATIVE (NEGATIVE)
[2017-06-13 22:31] LABS: TROPONIN I < 0.01 ng/mL
[2017-06-13 22:34] LABS: CK-MB 1.6 ng/mL (0.0-3.6)
[2017-06-13 23:03] LABS: URINE BACTERIA NEG (NEG); URINE RBC 0 - 2 /hpf (0-2); URINE WBC 0 - 2 /hpf (0-6)
--- NOTE | 2017-06-13 23:28 | CP.PCM.HP ---
History of Present Illness - History of Present Illness History of Present Illness: ICU H&P: Dr. Mast Chief Complaint: Swallowed bottle of pills/SI HPI: 21 year old obese female with past medical history of prolactinoma, depression, and schizoaffective disorder presents with suicidal ideations and overdose on ativan and abilify. Patient's story when I spoke to her was different than what she told the ER provider - patient states that she only took one or two pills but admitted to suicidal ideation. Per conversation with the ED provider , patient apparently changed her story several times even when talking to him. Per conversation with poison control, patient should be observed overnight. Review of Systems: 12 point ROS obtained and negative except as per HPI Surgical History: Patient denies Medical History: Prolactinoma, Depression, Schizoaffective Allergies: NKDA Social History: Patient denies alcohol, tobacco, illicits Home Meds: Reviewed, as per MAR Family History: Non-contributory PMD: Dr. Silveira Present on Admission - Present on Admission Any Indicators Present on Admission: No Past Patient History - Infectious Disease Hx of Infectious Diseases: None - Tetanus Immunizations Tetanus Immunization: Unknown - Past Social History Smoking Status: Never Smoked - CARDIAC Hx Cardiac Disorders: No - PULMONARY Hx Respiratory Disorders: No - NEUROLOGICAL Hx Neurological Disorder: No - HEENT Hx HEENT Problems: No - RENAL Hx Chronic Kidney Disease: No - ENDOCRINE/METABOLIC Other/Comment: Pituatary Tumor - HEMATOLOGICAL/ONCOLOGICAL Hx Blood Disorders: No - INTEGUMENTARY Hx Dermatological Problems: No - MUSCULOSKELETAL/RHEUMATOLOGICAL Hx Musculoskeletal Disorders: No - GASTROINTESTINAL Hx Gastrointestinal Disorders: No - GENITOURINARY/GYNECOLOGICAL Hx Genitourinary Disorders: No - PSYCHIATRIC Hx Bipolar Disorder: Yes Hx Substance Use: No - SURGICAL HISTORY Hx Surgeries: Yes (April 2014 ) - ANESTHESIA Hx Anesthesia: Yes Meds Allergies/Adverse Reactions: Allergies Allergy/AdvReac Type Severity Reaction Status Date / Time No Known Allergies Allergy Verified 06/13/17 18:18 Physical Exam - Constitutional Appears: Non-toxic, Unkempt - Head Exam Head Exam: ATRAUMATIC, NORMAL INSPECTION, NORMOCEPHALIC - Eye Exam Eye Exam: EOMI, Normal appearance, PERRL Pupil Exam: NORMAL ACCOMODATION, PERRL - ENT Exam ENT Exam: Mucous Membranes Moist, Normal Exam - Neck Exam Neck exam: Positive for: Normal Inspection - Respiratory Exam Respiratory Exam: Clear to Auscultation Bilateral, NORMAL BREATHING PATTERN - Cardiovascular Exam Cardiovascular Exam: REGULAR RHYTHM - GI/Abdominal Exam GI & Abdominal Exam: Normal Bowel Sounds, Soft. absent: Tenderness - Extremities Exam Extremities exam: Positive for: normal inspection - Back Exam Back exam: NORMAL INSPECTION - Neurological Exam Neurological exam: Alert, CN II-XII Intact, Normal Gait, Oriented x3, Reflexes Normal - Psychiatric Exam Psychiatric exam: Normal Affect, Normal Mood - Skin Skin Exam: Dry, Intact, Normal Color, Warm Results - Vital Signs Recent Vital Signs: Last Vital Signs Temp 98.7 F 06/13/17 18:54 Pulse 86 06/13/17 21:18 Resp 19 06/13/17 21:18 BP 121/76 06/13/17 21:18 Pulse Ox 97 06/13/17 21:18 - Labs Result Diagrams: 06/13/17 17:55 06/13/17 17:55 Labs: Laboratory Results - last 24 hr 06/13/17 06/13/17 21:15 21:15 Urine Color Yellow Urine Appearance Clear Urine pH 6.0 Ur Specific [place] >= 1.030 Urine Protein Trace H Urine Glucose (UA) Negative Urine Ketones Negative Urine Blood Negative Urine Nitrate Negative Urine Bilirubin Negative Urine Urobilinogen 1.0 H Ur Leukocyte Esterase Negative Urine RBC 0 - 2 Urine WBC 0 - 2 Ur Epithelial Cells 1 - 3 Urine Bacteria Neg Urine Opiates Screen Negative Urine Methadone Screen Negative Ur Barbiturates Screen Negative Ur Phencyclidine Scrn Negative Ur Amphetamines Screen Negative U Benzodiazepines Scrn Negative U Oth Cocaine Metabols Negative U Cannabinoids Screen Negative Assessment & Plan - Assessment and Plan (Free Text) Assessment: 21 year old obese female with past medical history of schizoaffective disorder presents after questionable overdose with abilify and ativan. In the ED, EKG: NSR @ 81 BPM, no ST elevations or depressions, no T wave inversions; Chest xray : no active disease; Labs show no acute findings. Poison control advised to keep patient overnight for observation, but since the patient is a poor historian, ICU evaluation was deemed appropriate. Plan Neuropsych: Lethargic - Neuro checks, Aspiration precautions, Fall precautions, Seizure precautions - Ativan q6 PRN - Psych consult: Dr. Persaud; 1:1 Sitter CV: - Maintain MAP > 65 - Serial EKG's to check QTc interval Pulm: - Maintain SPO2 > 90 % - 2L NC as needed; ensure patient is protecting her airway GI: - NPO, Swallow Eval - Protonix for prophylaxis Renal: - Replete electrolytes as needed; monitor CMP ID: - Septic work up - RPR (patient may be candidate for psych admission) Endo: - TSH Dispo: At this time, patient requires ICU level of care. We will continue to monitor closely
[2017-06-14 05:57] LABS: BASO # 0.01 K/mm3 (0.0-2.0); BASO % 0.2 % (0.0-3.0); EOS # 0.1 (0.0-0.7); EOS % 2.4 % (1.5-5.0); GRAN # 2.33 (1.4-6.5); GRAN % 42.3 % (50.0-68.0); HEMOGLOBIN 11.3 g/dL (12.0-16.0); LYMPH # 2.6 (1.2-3.4); LYMPH % 47.7 % (22.0-35.0); MEAN CELL VOLUME 86.1 fl (80.0-105.0); MEAN CORPUSCULAR HEMOGLOBIN 27.6 pg (25.0-35.0); MEAN CORPUSCULAR HGB CONC 32.1 g/dl (31.0-37.0); MEAN PLATELET VOLUME 10.3 fl (7.0-11.0); MONO # 0.4 (0.1-0.6); MONO % 7.4 % (1.0-6.0); RBC 4.09 10^6/uL (3.5-6.1); RED CELL DISTRIBUTION WIDTH 13.5 % (11.5-14.5); WHITE BLOOD COUNT 5.5 10^3/ul (4.5-11.0)
[2017-06-14 06:39] LABS: TROPONIN I < 0.01 ng/mL
[2017-06-14 06:56] LABS: ALB/GLOB RATIO 1.1 (1.1-1.8); ALBUMIN 3.5 g/dL (3.0-4.8); ALT/SGPT 22 U/L (7-56); AST/SGOT 25 U/L (14-36); BLOOD UREA NITROGEN 6 mg/dL (7-21); CALCIUM 8.7 mg/dL (8.4-10.5); GFR AFRICAN-AMERICAN > 60; GFR NON-AFRICAN AMERICAN > 60
[2017-06-14] MEDS: Pantoprazole 40 mg EC Tab PO SCH (08:17)
--- NOTE | 2017-06-14 08:28 | RAD ---
HISTORY: medical clearance COMPARISON: No prior. FINDINGS: LUNGS: No active pulmonary disease. PLEURA: No significant pleural effusion identified, no pneumothorax apparent. CARDIOVASCULAR: Normal. OSSEOUS STRUCTURES: No significant abnormalities. VISUALIZED UPPER ABDOMEN: Normal. OTHER FINDINGS: None. IMPRESSION: No active disease.
--- NOTE | 2017-06-14 09:22 | CP.PCM.PN ---
<Eleno Shelton - Last Filed: 06/14/17 09:17> Subjective - Date & Time of Evaluation Date of Evaluation: 06/14/17 Time of Evaluation: 09:18 - Subjective Subjective: Medicine Progress Note Pt seen and examined at bedside. No acute overnight events. Patient lethargic and somnolent on exam. Patient opens eyes to verbal stimuli and answers simple questioning. ROS unobtainable at this time due to patient's current mental status. Objective - Vital Signs/Intake and Output Vital Signs (last 24 hours): Temp Pulse Resp BP Pulse Ox 99.5 F 87 26 H 135/87 85 L 06/13/17 23:48 06/14/17 08:05 06/14/17 08:04 06/14/17 07:55 06/14/17 07:40 Intake and Output: 06/14/17 06/14/17 06:59 18:59 Intake Total 600 Balance 600 - Medications Medications: Current Medications Enoxaparin Sodium (Lovenox) 40 mg SC DAILY RENATO PRN Reason: Protocol Sodium Chloride (Sodium Chloride 0.9%) 1,000 mls @ 100 mls/hr IV .Q10H RENATO Last Admin: 06/14/17 08:18 Dose: 100 mls/hr Sodium Chloride (Sodium Chloride 0.9%) 1,000 mls @ 100 mls/hr IV .Q10H RENATO Lorazepam (Ativan) 1 mg IVP Q2H PRN; Protocol PRN Reason: Anxiety Pantoprazole Sodium (Protonix Ec Tab) 40 mg PO 0600 [facility] Last Admin: 06/14/17 08:17 Dose: 40 mg - Labs Labs: 06/14/17 05:30 06/14/17 05:30 PT 11.5 SECONDS (9.4-12.5) 06/13/17 17:55 INR 1.01 (0.93-1.08) 06/13/17 17:55 APTT 31.0 Seconds (25.1-36.5) 06/13/17 17:55 - Constitutional Appears: No Acute Distress - Head Exam Head Exam: NORMAL INSPECTION - Eye Exam Eye Exam: Normal appearance - ENT Exam ENT Exam: Normal Exam - Neck Exam Neck Exam: Normal Inspection - Respiratory Exam Respiratory Exam: Clear to Ausculation Bilateral. absent: Rales, Rhonchi, Wheezes - Cardiovascular Exam Cardiovascular Exam: RRR, +S1, +S2. absent: Diastolic murmur, Gallop, Rubs, Murmur - GI/Abdominal Exam GI & Abdominal Exam: Soft. absent: Distended, Guarding, Tenderness, Rebound - Extremities Exam Extremities Exam: Normal Inspection - Back Exam Back Exam: NORMAL INSPECTION - Neurological Exam Neurological Exam: Alert, CN II-XII Intact. absent: Awake, Oriented x3 - Skin Skin Exam: Dry, Intact, Normal Color, Warm Assessment and Plan - Assessment and Plan (Free Text) Assessment: Pt is a 21 yo F with PMH of schizoaffective disorder that was admitted to ICU for possible overdose with abilify and ativan. Patient remained stable overnight , downgraded and transferred to med/surg. Plan: 1. Altered Mental Status likely 2/2 Overdose - Possible OD on Abilify and Ativan - Poison control contacted and recommended observation and supportive care - EKG showed NSR with normal QTc - UDS, ASA, tylenol, and EtOH levels negative - Cardiac enzymes negative x2 - F/u cultures, RPR - Neurochecks - Seizure precautions - Aspiration precautions - Head of bead to 45 degrees - Swallow eval - Continue 1:1 due to suicide risk - Ativan prn for anxiety - Psych consulted 2. H/o Schizoaffective disorder - Psych consulted GI/DVT PPx - Protonix - Lovenox Pt seen and discussed in detail with Dr. Hernandez. Neri Shelton, PGY1 <Shanita Hernandez - Last Filed: 06/14/17 14:41> Objective - Vital Signs/Intake and Output Vital Signs (last 24 hours): Temp Pulse Resp BP Pulse Ox 99.5 F 87 26 H 135/87 85 L 06/13/17 23:48 06/14/17 08:05 06/14/17 08:04 06/14/17 07:55 06/14/17 07:40 Intake and Output: 06/14/17 06/14/17 06:59 18:59 Intake Total 600 Balance 600 - Medications Medications: Current Medications Enoxaparin Sodium (Lovenox) 40 mg SC DAILY REANTO PRN Reason: Protocol Last Admin: 06/14/17 10:10 Dose: Not Given Sodium Chloride (Sodium Chloride 0.9%) 1,000 mls @ 100 mls/hr IV .Q10H RENATO Lorazepam (Ativan) 1 mg IVP Q2H PRN; Protocol PRN Reason: Anxiety Pantoprazole Sodium (Protonix Ec Tab) 40 mg PO 0600 RENATO Last Admin: 06/14/17 08:17 Dose: 40 mg - Labs Labs: 06/14/17 05:30 06/14/17 05:30 PT 11.5 SECONDS (9.4-12.5) 06/13/17 17:55 INR 1.01 (0.93-1.08) 06/13/17 17:55 APTT 31.0 Seconds (25.1-36.5) 06/13/17 17:55 Attending/Attestation - Attestation I have personally seen and examined this patient.: Yes I have fully participated in the care of the patient.: Yes I have reviewed all pertinent clinical information, including history, physical exam and plan: Yes Notes (Text): 06/14/17 14:21 attending note; Patient seen and examined with resident. Patient is drowsy. Opens eyes for conversation. Still not communicating much. Vitals stable. patient is a 21-year-old female admitted with apparent overdose of Ativan and Abilify. Currently sleepy. Able to answer a few questions. possible Suicidal ideation. continue one-to-one. psychiatric evaluation requested. Nothing by mouth. Patient is completely awake. Continue IV fluids. EKG is normal. Poison control suggested supportive care. monitor closely. Upon discharge the patient will follow-up with PMD Dr. Silveira.
[2017-06-14] MEDS: Enoxaparin 40 mg Syringe SC SCH (10:10)
--- NOTE | 2017-06-14 12:20 | CP.PCM.PCO ---
Addendum Addendum: This provider attempted to interview patient multiple times this morning. Though patient is initially responsive she appears too sedated to engage in a meaningful interview. I cannot r/o that this behavior is volitional as she may not be ready to speak with psychiatry about circumstances of admission. Dr. Rhoades will f/u with patient in the AM and re-attempt interview. 06/14/17 12:18
[2017-06-14 13:55] LABS: TROPONIN I < 0.01 ng/mL
--- NOTE | 2017-06-14 15:11 | CARD ---
APPROVED REPORT EKG Measurement Heart [id number] CT 152P47 [id number] <Conclusion> Normal sinus rhythm with sinus arrhythmia Normal ECG
--- NOTE | 2017-06-14 15:21 | CARD ---
APPROVED REPORT EKG Measurement Heart [id number] [place] 158P45 [id number] <Conclusion> Normal sinus rhythm Normal ECG
--- NOTE | 2017-06-14 15:23 | CARD ---
APPROVED REPORT EKG Measurement Heart [id number] [place] 158P36 [id number] <Conclusion> Sinus rhythm with premature atrial complexes Otherwise normal ECG
[2017-06-14 16:12] VITALS: RESP 18
[2017-06-15] MEDS: Pantoprazole 40 mg EC Tab PO SCH (05:51)
[2017-06-15 07:16] LABS: BASO # 0.01 K/mm3 (0.0-2.0); BASO % 0.2 % (0.0-3.0); EOS # 0.2 (0.0-0.7); EOS % 3.1 % (1.5-5.0); GRAN # 2.74 (1.4-6.5); GRAN % 46.6 % (50.0-68.0); HEMOGLOBIN 11.2 g/dL (12.0-16.0); LYMPH # 2.4 (1.2-3.4); LYMPH % 41.4 % (22.0-35.0); MEAN CELL VOLUME 85.9 fl (80.0-105.0); MEAN CORPUSCULAR HEMOGLOBIN 28.2 pg (25.0-35.0); MEAN CORPUSCULAR HGB CONC 32.8 g/dl (31.0-37.0); MEAN PLATELET VOLUME 10.6 fl (7.0-11.0); MONO # 0.5 (0.1-0.6); MONO % 8.7 % (1.0-6.0); RBC 3.97 10^6/uL (3.5-6.1); RED CELL DISTRIBUTION WIDTH 13.6 % (11.5-14.5); WHITE BLOOD COUNT 5.9 10^3/ul (4.5-11.0)
[2017-06-15 07:32] LABS: ALB/GLOB RATIO 1.2 (1.1-1.8); ALBUMIN 3.8 g/dL (3.0-4.8); ALT/SGPT 23 U/L (7-56); AST/SGOT 31 U/L (14-36); BLOOD UREA NITROGEN 9 mg/dL (7-21); CALCIUM 9.1 mg/dL (8.4-10.5); GFR AFRICAN-AMERICAN > 60; GFR NON-AFRICAN AMERICAN > 60
[2017-06-15 07:34] VITALS: O2SAT 97
[2017-06-15] MEDS: Enoxaparin 40 mg Syringe SC SCH (10:09)
--- NOTE | 2017-06-15 13:54 | CP.PCM.PN ---
<Rosangela Bajwa - Last Filed: 06/15/17 13:49> Subjective - Date & Time of Evaluation Date of Evaluation: 06/15/17 Time of Evaluation: 13:49 - Subjective Subjective: Rosangela Bajwa, PGY1, Progress Note for Dr Travis: Patient seen and examined at bedside. No acute events overnight. Pt tearful this AM, states that she is still feeling depressed and would again take pills at home like last time. Denies fever, chills, nausea, vomiting, abdominal pain, leg swelling, lethargy. Objective - Vital Signs/Intake and Output Vital Signs (last 24 hours): Temp Pulse Resp BP Pulse Ox 98.1 F 81 18 133/84 97 06/15/17 07:00 06/15/17 07:00 06/15/17 07:00 06/15/17 07:00 06/15/17 07:00 Intake and Output: 06/15/17 06/15/17 06:59 18:59 Intake Total 480 520 Balance 480 520 - Medications Medications: Current Medications Enoxaparin Sodium (Lovenox) 40 mg SC DAILY RENATO PRN Reason: Protocol Last Admin: 06/15/17 10:09 Dose: Not Given Sodium Chloride (Sodium Chloride 0.9%) 1,000 mls @ 100 mls/hr IV .Q10H RENATO Lorazepam (Ativan) 1 mg IVP Q2H PRN; Protocol PRN Reason: Anxiety Pantoprazole Sodium (Protonix Ec Tab) 40 mg PO 0600 [facility] Last Admin: 06/15/17 05:51 Dose: 40 mg - Labs Labs: 06/15/17 06:45 06/15/17 06:45 PT 11.5 SECONDS (9.4-12.5) 06/13/17 17:55 INR 1.01 (0.93-1.08) 06/13/17 17:55 APTT 31.0 Seconds (25.1-36.5) 06/13/17 17:55 - Constitutional Appears: Non-toxic, No Acute Distress - Head Exam Head Exam: ATRAUMATIC, NORMOCEPHALIC - Eye Exam Eye Exam: EOMI, PERRL. absent: Conjunctival injection, Nystagmus, Scleral icterus Pupil Exam: NORMAL ACCOMODATION, PERRL. absent: Fixed, Irregular, Unequal - ENT Exam ENT Exam: Mucous Membranes Moist - Neck Exam Neck Exam: Full ROM - Respiratory Exam Respiratory Exam: Clear to Ausculation Bilateral, NORMAL BREATHING PATTERN. absent: Accessory Muscle Use, Rhonchi, Wheezes, Respiratory Distress, Stridor - Cardiovascular Exam Cardiovascular Exam: +S1, +S2. absent: Bradycardia, Tachycardia, Murmur - GI/Abdominal Exam GI & Abdominal Exam: Soft, Normal Bowel Sounds. absent: Distended, Firm, Guarding, Tenderness, Mass, Organomegaly, Rebound - Extremities Exam Extremities Exam: Normal Inspection. absent: Calf Tenderness, Pedal Edema - Back Exam Back Exam: NORMAL INSPECTION - Neurological Exam Neurological Exam: Alert, Awake, Oriented x3 - Psychiatric Exam Psychiatric exam: Normal Affect, Normal Mood - Skin Skin Exam: Dry, Normal Color, Warm Assessment and Plan - Assessment and Plan (Free Text) Assessment: 21 year old female with PMH schizoaffective disorder, prolactinoma, depression, admitted for possible overdose with Xanax and Ativan, and suicidal ideation. Pt awaiting psych eval: Altered Mental Status likely 2/2 Overdose: - resolved - Possible OD on Xanax and Ativan - Poison control contacted and recommended observation and supportive care - EKG showed NSR with normal QTc - UDS, ASA, tylenol, and EtOH levels negative - Cardiac enzymes negative x3 - blood and urine cultures negative, RPR NR - Neurochecks - Seizure precautions - Aspiration precautions - Head of bead to 45 degrees Suicidal ideation: - Continue 1:1 due to suicide risk - Ativan prn for anxiety - Psych consulted. Follow up eval regarding admission to [facility] unit. H/o Schizoaffective disorder: - Psych consulted GI/DVT PPx: - Protonix - Lovenox Pt seen and discussed in detail with Dr Travis. Rosangela Bajwa, PGY1 <Smitha Travis - Last Filed: 06/15/17 15:39> Objective - Vital Signs/Intake and Output Vital Signs (last 24 hours): Temp Pulse Resp BP Pulse Ox 98.7 F 107 H 18 116/75 97 06/15/17 14:00 06/15/17 14:00 06/15/17 14:00 06/15/17 14:00 06/15/17 14:00 Intake and Output: 06/15/17 06/15/17 06:59 18:59 Intake Total 480 520 Balance 480 520 - Medications Medications: Current Medications Aripiprazole (Abilify) 5 mg PO AMHS RENATO Enoxaparin Sodium (Lovenox) 40 mg SC DAILY RENATO PRN Reason: Protocol Last Admin: 06/15/17 10:09 Dose: Not Given Sodium Chloride (Sodium Chloride 0.9%) 1,000 mls @ 100 mls/hr IV .Q10H RENATO Lorazepam (Ativan) 1 mg IVP Q2H PRN; Protocol PRN Reason: Anxiety Pantoprazole Sodium (Protonix Ec Tab) 40 mg PO 0600 RENATO Last Admin: 06/15/17 05:51 Dose: 40 mg Zaleplon (Sonata) 5 mg PO HS PRN PRN Reason: Insomnia Ziprasidone (Geodon Inj) 20 mg IM TID PRN; Protocol PRN Reason: agitation/aggression - Labs Labs: 06/15/17 06:45 06/15/17 06:45 PT 11.5 SECONDS (9.4-12.5) 06/13/17 17:55 INR 1.01 (0.93-1.08) 06/13/17 17:55 APTT 31.0 Seconds (25.1-36.5) 06/13/17 17:55 Attending/Attestation - Attestation I have personally seen and examined this patient.: Yes I have fully participated in the care of the patient.: Yes I have reviewed all pertinent clinical information, including history, physical exam and plan: Yes Notes (Text): 06/15/17 15:36 21 year old female with past medical history of bipolar/schizoaffective disorder who presented s/p intentional overdose (xanax/ativan/abilify?). UTox was negative. Poison control was contacted who recommended observation and supportive care. This morning she still appears depressed and tearful. Continue with 1:1 observation. Psychiatry is following. Case was discussed with Dr. Rhoades today regarding possible transfer to inpatient psychiatric unit if patient is agreeable. Smitha Travis MD Hospitalist.
[2017-06-15 14:48] VITALS: BP 116/75; PULSE 107; TEMP 98.7
--- NOTE | 2017-06-15 16:35 | CP.PCM.DIS ---
<Rosangela Bajwa - Last Filed: 06/15/17 16:31> Provider - Provider Date of Admission: 06/13/17 20:44 Attending physician: Smitha Travis MD Primary care physician: Carlos Silveira MD Consults: Psych Claire Time Spent in preparation of Discharge (in minutes): 60 Diagnosis - Discharge Diagnosis (1) Depression with suicidal ideation Status: Acute (2) Overdose Status: Acute Hospital Course - Lab Results Lab Results: Micro Results 06/14/17 01:15 Naris MRSA Culture (Admit) - Final MRSA NOT DETECTED 06/13/17 21:15 Urine,Clean Catch Urine Culture - Final No Growth (<1,000 CFU/ML) 06/13/17 22:10 Blood Blood Culture - Preliminary NO GROWTH AFTER 24 HOURS 06/13/17 21:49 Blood Blood Culture - Preliminary NO GROWTH AFTER 24 HOURS Most Recent Lab Values WBC 5.9 10^3/ul (4.5-11.0) 06/15/17 06:45 RBC 3.97 10^6/uL (3.5-6.1) 06/15/17 06:45 Hgb 11.2 g/dL (12.0-16.0) L 06/15/17 06:45 Hct 34.1 % (36.0-48.0) L 06/15/17 06:45 MCV 85.9 fl (80.0-105.0) 06/15/17 06:45 MCH 28.2 pg (25.0-35.0) 06/15/17 06:45 MCHC 32.8 g/dl (31.0-37.0) 06/15/17 06:45 RDW 13.6 % (11.5-14.5) 06/15/17 06:45 Plt Count 404 10^3/uL (120.0-450.0) 06/15/17 06:45 MPV 10.6 fl (7.0-11.0) 06/15/17 06:45 Gran % 46.6 % (50.0-68.0) L 06/15/17 06:45 Lymph % (Auto) 41.4 % (22.0-35.0) H 06/15/17 06:45 [place] % (Auto) 8.7 % (1.0-6.0) H 06/15/17 06:45 Eos % (Auto) 3.1 % (1.5-5.0) 06/15/17 06:45 Baso % (Auto) 0.2 % (0.0-3.0) 06/15/17 06:45 Gran # 2.74 (1.4-6.5) 06/15/17 06:45 Lymph # (Auto) 2.4 (1.2-3.4) 06/15/17 06:45 [place] # (Auto) 0.5 (0.1-0.6) 06/15/17 06:45 Eos # (Auto) 0.2 (0.0-0.7) 06/15/17 06:45 Baso # (Auto) 0.01 K/mm3 (0.0-2.0) 06/15/17 06:45 PT 11.5 SECONDS (9.4-12.5) 06/13/17 17:55 INR 1.01 (0.93-1.08) 06/13/17 17:55 APTT 31.0 Seconds (25.1-36.5) 06/13/17 17:55 Sodium 146 mmol/L (132-148) 06/15/17 06:45 Potassium 4.1 mmol/L (3.6-5.0) 06/15/17 06:45 Chloride 111 mmol/L (98-107) H 06/15/17 06:45 Carbon Dioxide 23 mmol/L (21-33) 06/15/17 06:45 Anion Gap 16 (10-20) 06/15/17 06:45 BUN 9 mg/dL (7-21) 06/15/17 06:45 Creatinine 0.9 mg/dl (0.7-1.2) 06/15/17 06:45 Est GFR ( Amer) > 60 06/15/17 06:45 Est GFR (Non-Af Amer) > 60 06/15/17 06:45 Random Glucose 81 mg/dL (70-110) 06/15/17 06:45 Calcium 9.1 mg/dL (8.4-10.5) 06/15/17 06:45 Phosphorus 3.9 mg/dL (2.5-4.5) 06/14/17 05:30 Magnesium 2.1 mg/dL (1.7-2.2) 06/14/17 05:30 Total Bilirubin 0.2 mg/dL (0.2-1.3) 06/15/17 06:45 AST 31 U/L (14-36) 06/15/17 06:45 ALT 23 U/L (7-56) 06/15/17 06:45 Alkaline Phosphatase 50 U/L (38-126) 06/15/17 06:45 Lactate Dehydrogenase 391 U/L (333-699) 06/14/17 13:30 Total Creatine Kinase 201 U/L (35-230) 06/14/17 13:30 CK-MB (CK-2) 1.6 ng/mL (0.0-3.6) 06/13/17 17:55 CK-MB (CK-2) % Cancelled 06/13/17 17:55 Troponin I < 0.01 ng/mL 06/14/17 13:30 Total Protein 6.8 g/dL (5.8-8.3) 06/15/17 06:45 Albumin 3.8 g/dL (3.0-4.8) 06/15/17 06:45 Globulin 3.1 gm/dL 06/15/17 06:45 Albumin/Globulin Ratio 1.2 (1.1-1.8) 06/15/17 06:45 TSH 3rd Generation 0.96 mIU/mL (0.46-4.68) 06/14/17 05:40 Beta HCG, Quant < 2.39 mIU/mL (0-6.15) 06/13/17 19:15 Urine Color Yellow (YELLOW) 06/13/17 21:15 Urine Appearance Clear (CLEAR) 06/13/17 21:15 Urine pH 6.0 (4.7-8.0) 06/13/17 21:15 Ur Specific Antonito >= 1.030 (1.005-1.035) 06/13/17 21:15 Urine Protein Trace mg/dL (<30 mg/dL) H 06/13/17 21:15 Urine Glucose (UA) Negative mg/dL (NEGATIVE) 06/13/17 21:15 Urine Ketones Negative mg/dL (NEGATIVE) 06/13/17 21:15 Urine Blood Negative (NEGATIVE) 06/13/17 21:15 Urine Nitrate Negative (NEGATIVE) 06/13/17 21:15 Urine Bilirubin Negative (NEGATIVE) 06/13/17 21:15 Urine Urobilinogen 1.0 E.U./dL (<1 E.U./dL) H 06/13/17 21:15 Ur Leukocyte Esterase Negative Gina/uL (NEGATIVE) 06/13/17 21:15 Urine RBC 0 - 2 /hpf (0-2) 06/13/17 21:15 Urine WBC 0 - 2 /hpf (0-6) 06/13/17 21:15 Ur Epithelial Cells 1 - 3 /hpf (0-5) 06/13/17 21:15 Urine Bacteria Neg (NEG) 06/13/17 21:15 Salicylates < 1 mg/dL (2.0-20.0) L 06/13/17 17:55 Urine Opiates Screen Negative (NEGATIVE) 06/13/17 21:15 Urine Methadone Screen Negative (NEGATIVE) 06/13/17 21:15 Acetaminophen < 10.0 ug/ml (10.0-20.0) L 06/13/17 17:55 Ur Barbiturates Screen Negative (NEGATIVE) 06/13/17 21:15 Ur Phencyclidine Scrn Negative (NEGATIVE) 06/13/17 21:15 Ur Amphetamines Screen Negative (NEGATIVE) 06/13/17 21:15 U Benzodiazepines Scrn Negative (NEGATIVE) 06/13/17 21:15 U Oth Cocaine Metabols Negative (NEGATIVE) 06/13/17 21:15 U Cannabinoids Screen Negative (NEGATIVE) 06/13/17 21:15 Alcohol, Quantitative < 10 mg/dL (0-10) 06/13/17 17:55 RPR Nonreactive (NONREACTIVE) 06/14/17 05:30 - Hospital Course Hospital Course: 21 year old obese female with past medical history of prolactinoma, depression, and schizoaffective disorder presents with suicidal ideations and possible overdose on ativan and Xanax. Pt's utox negative, vitals stable, Cbc, cmp unremarkable, mildly lethargic on presentation, which has improved today. She is AOx3. Poison control was contacted, recommended supportive management. Pt remains depressed and suicidal, pscyh contacted. Pt accepted into psych unit at [facility]. Pt to continue with her current meds. Rest management per psych. Case discussed with Dr Travis. Rosangela Bajwa, PGY1 Discharge Exam - Head Exam Head Exam: ATRAUMATIC, NORMOCEPHALIC - Eye Exam Eye Exam: EOMI, PERRL. absent: Conjunctival injection, Nystagmus, Scleral icterus Pupil Exam: NORMAL ACCOMODATION, PERRL. absent: Fixed, Irregular, Unequal - ENT Exam ENT Exam: Mucous Membranes Moist - Neck Exam Neck exam: Full Rom - Respiratory Exam Respiratory Exam: Clear to PA & Lateral, NORMAL BREATHING PATTERN. absent: Accessory Muscle Use, Rales, Rhonchi, Wheezes, Respiratory Distress, Stridor - Cardiovascular Exam Cardiovascular Exam: RRR, +S1, +S2. absent: Systolic Murmur - GI/Abdominal Exam GI & Abdominal Exam: Normal Bowel Sounds, Soft. absent: Distended, Firm, Mass, Organomegaly, Rebound, Rigid, Tenderness - Extremities Exam Extremities exam: normal inspection - Back Exam Back exam: NORMAL INSPECTION - Neurological Exam Neurological exam: Alert, Oriented x3 - Psychiatric Exam Psychiatric exam: Depressed, Suicidal Ideation - Skin Skin Exam: Dry, Normal Color, Warm Discharge Plan - Follow Up Plan Condition: STABLE Disposition: DISCHARGE TO PSYCH HOSPITAL Instructions: Depression, Adult (DC), Narcotic Overdose , Suicide Prevention for Adults (DC) Additional Instructions: - You are discharged to the psych unit. - Please take meds as per med reconciliation. - Rest management per psych Referrals: Carlos Silveira MD [Primary Care Provider] - <Smitha Travis - Last Filed: 06/15/17 17:17> Provider - Provider Date of Admission: 06/13/17 20:44 Attending physician: Smitha Travis MD Primary care physician: Carlos Silveira MD Hospital Course - Lab Results Lab Results: Micro Results 06/14/17 01:15 Naris MRSA Culture (Admit) - Final MRSA NOT DETECTED 06/13/17 21:15 Urine,Clean Catch Urine Culture - Final No Growth (<1,000 CFU/ML) 06/13/17 22:10 Blood Blood Culture - Preliminary NO GROWTH AFTER 24 HOURS 06/13/17 21:49 Blood Blood Culture - Preliminary NO GROWTH AFTER 24 HOURS Most Recent Lab Values WBC 5.9 10^3/ul (4.5-11.0) 06/15/17 06:45 RBC 3.97 10^6/uL (3.5-6.1) 06/15/17 06:45 Hgb 11.2 g/dL (12.0-16.0) L 06/15/17 06:45 Hct 34.1 % (36.0-48.0) L 06/15/17 06:45 MCV 85.9 fl (80.0-105.0) 06/15/17 06:45 MCH 28.2 pg (25.0-35.0) 06/15/17 06:45 MCHC 32.8 g/dl (31.0-37.0) 06/15/17 06:45 RDW 13.6 % (11.5-14.5) 06/15/17 06:45 Plt Count 404 10^3/uL (120.0-450.0) 06/15/17 06:45 MPV 10.6 fl (7.0-11.0) 06/15/17 06:45 Gran % 46.6 % (50.0-68.0) L 06/15/17 06:45 Lymph % (Auto) 41.4 % (22.0-35.0) H 06/15/17 06:45 [place] % (Auto) 8.7 % (1.0-6.0) H 06/15/17 06:45 Eos % (Auto) 3.1 % (1.5-5.0) 06/15/17 06:45 Baso % (Auto) 0.2 % (0.0-3.0) 06/15/17 06:45 Gran # 2.74 (1.4-6.5) 06/15/17 06:45 Lymph # (Auto) 2.4 (1.2-3.4) 06/15/17 06:45 [place] # (Auto) 0.5 (0.1-0.6) 06/15/17 06:45 Eos # (Auto) 0.2 (0.0-0.7) 06/15/17 06:45 Baso # (Auto) 0.01 K/mm3 (0.0-2.0) 06/15/17 06:45 PT 11.5 SECONDS (9.4-12.5) 06/13/17 17:55 INR 1.01 (0.93-1.08) 06/13/17 17:55 APTT 31.0 Seconds (25.1-36.5) 06/13/17 17:55 Sodium 146 mmol/L (132-148) 06/15/17 06:45 Potassium 4.1 mmol/L (3.6-5.0) 06/15/17 06:45 Chloride 111 mmol/L (98-107) H 06/15/17 06:45 Carbon Dioxide 23 mmol/L (21-33) 06/15/17 06:45 Anion Gap 16 (10-20) 06/15/17 06:45 BUN 9 mg/dL (7-21) 06/15/17 06:45 Creatinine 0.9 mg/dl (0.7-1.2) 06/15/17 06:45 Est GFR ( Amer) > 60 06/15/17 06:45 Est GFR (Non-Af Amer) > 60 06/15/17 06:45 Random Glucose 81 mg/dL (70-110) 06/15/17 06:45 Calcium 9.1 mg/dL (8.4-10.5) 06/15/17 06:45 Phosphorus 3.9 mg/dL (2.5-4.5) 06/14/17 05:30 Magnesium 2.1 mg/dL (1.7-2.2) 06/14/17 05:30 Total Bilirubin 0.2 mg/dL (0.2-1.3) 06/15/17 06:45 AST 31 U/L (14-36) 06/15/17 06:45 ALT 23 U/L (7-56) 06/15/17 06:45 Alkaline Phosphatase 50 U/L (38-126) 06/15/17 06:45 Lactate Dehydrogenase 391 U/L (333-699) 06/14/17 13:30 Total Creatine Kinase 201 U/L (35-230) 06/14/17 13:30 CK-MB (CK-2) 1.6 ng/mL (0.0-3.6) 06/13/17 17:55 CK-MB (CK-2) % Cancelled 06/13/17 17:55 Troponin I < 0.01 ng/mL 06/14/17 13:30 Total Protein 6.8 g/dL (5.8-8.3) 06/15/17 06:45 Albumin 3.8 g/dL (3.0-4.8) 06/15/17 06:45 Globulin 3.1 gm/dL 06/15/17 06:45 Albumin/Globulin Ratio 1.2 (1.1-1.8) 06/15/17 06:45 TSH 3rd Generation 0.96 mIU/mL (0.46-4.68) 06/14/17 05:40 Beta HCG, Quant < 2.39 mIU/mL (0-6.15) 06/13/17 19:15 Urine Color Yellow (YELLOW) 06/13/17 21:15 Urine Appearance Clear (CLEAR) 06/13/17 21:15 Urine pH 6.0 (4.7-8.0) 06/13/17 21:15 Ur Specific [place] >= 1.030 (1.005-1.035) 06/13/17 21:15 Urine Protein Trace mg/dL (<30 mg/dL) H 06/13/17 21:15 Urine Glucose (UA) Negative mg/dL (NEGATIVE) 06/13/17 21:15 Urine Ketones Negative mg/dL (NEGATIVE) 06/13/17 21:15 Urine Blood Negative (NEGATIVE) 06/13/17 21:15 Urine Nitrate Negative (NEGATIVE) 06/13/17 21:15 Urine Bilirubin Negative (NEGATIVE) 06/13/17 21:15 Urine Urobilinogen 1.0 E.U./dL (<1 E.U./dL) H 06/13/17 21:15 Ur Leukocyte Esterase Negative Gina/uL (NEGATIVE) 06/13/17 21:15 Urine RBC 0 - 2 /hpf (0-2) 06/13/17 21:15 Urine WBC 0 - 2 /hpf (0-6) 06/13/17 21:15 Ur Epithelial Cells 1 - 3 /hpf (0-5) 06/13/17 21:15 Urine Bacteria Neg (NEG) 06/13/17 21:15 Salicylates < 1 mg/dL (2.0-20.0) L 06/13/17 17:55 Urine Opiates Screen Negative (NEGATIVE) 06/13/17 21:15 Urine Methadone Screen Negative (NEGATIVE) 06/13/17 21:15 Acetaminophen < 10.0 ug/ml (10.0-20.0) L 06/13/17 17:55 Ur Barbiturates Screen Negative (NEGATIVE) 06/13/17 21:15 Ur Phencyclidine Scrn Negative (NEGATIVE) 06/13/17 21:15 Ur Amphetamines Screen Negative (NEGATIVE) 06/13/17 21:15 U Benzodiazepines Scrn Negative (NEGATIVE) 06/13/17 21:15 U Oth Cocaine Metabols Negative (NEGATIVE) 06/13/17 21:15 U Cannabinoids Screen Negative (NEGATIVE) 06/13/17 21:15 Alcohol, Quantitative < 10 mg/dL (0-10) 06/13/17 17:55 RPR Nonreactive (NONREACTIVE) 06/14/17 05:30 Attending/Attestation - Attestation I have personally seen and examined this patient.: Yes I have fully participated in the care of the patient.: Yes I have reviewed all pertinent clinical information, including history, physical exam and plan: Yes Notes (Text): 06/15/17 17:15 21 year old female with past medical history of bipolar/schizoaffective disorder who presented s/p intentional overdose. She admitted to taking several pills of xanax/ativan/abilify? although her urine drug screen was negative. Poison control was contacted who recommended observation and supportive care. This morning she still appeared depressed and tearful. She was seen by psychiatrist and is agreeable to be transferred to inpatient psychiatric unit. Smitha Travis MD Hospitalist.
--- NOTE | 2017-06-16 02:23 | CON ---
DATE: HISTORY OF PRESENT ILLNESS: The patient is a 21-year-old female, history of schizophrenia. The patient has multiple psychiatric admissions to this facility, most recent was in the beginning of the year. The patient also has a history of prolactinoma. The patient is supposed to be on Abilify. The patient was brought in for evaluation of possible suicidal attempt. The patient claimed that she overdosed on benzodiazepines and Abilify, was not able to tell how many pills she overdosed on, and circumstances are unknown. The patient was admitted to ICU, then downgraded to the medical site. Over the weekend, the patient refused to talk to Dr. Persaud and this underwriter is interacting with the patient for the first time. This underwriter is very familiar with this patient from the multiple admissions to the psychiatric inpatient unit. The patient has schizophrenia spectrum disorder, some cognitive limitations, borderline intellectual functioning. The patient remembered this underwriter by name. The patient said that she was very depressed. The patient said that she was kicked out from the house by her mother and she was staying with her friend. The patient reported that she was feeling hopeless and helpless, did not disclose how many pills the patient took. The patient reported that she was compliant with the medications, but was overwhelmed before coming to the hospital. The patient reported that she filled medication in [facility] and she is seeing psychiatrist at [facility], [facility] pharmacy was contacted [phone]. The patient was on ibuprofen, Abilify 5 mg at the morning time and 10 mg at the nighttime, 5 mg the patient filled on 05/11/2017 and 10 mg at the nighttime patient filled on 05/08/2017, no refills left. If the patient was compliant with the medications, she is supposed to run short on the medication for the past week or so. The patient also said that lorazepam she was taking, but urine drug screen was negative for any benzodiazepines, and as per pharmacy, the patient filled that medication on 05/08/2017, 1 mg 3 times a day. The patient also was on Naproxen every 12 hours as well as ibuprofen, prescriber for psychotropic medication is Dr. Pineda. PHYSICAL EXAMINATION: VITAL SIGNS: Temperature 98.7, pulse is 107, blood pressure 160/75, respirations 18, oxygen saturation is 97. MEDICATIONS: Reviewed, Abilify 5 mg twice a day will be resumed, Ativan 1 mg IV push every 12 hours as needed for anxiety. Sonata will be started at the nighttime as needed for insomnia, Geodon 20 mg IM 3 times a day as needed for agitation. LABORATORY DATA: Labs reviewed. Most recent was from today. Hemoglobin and hematocrit 11.2 and 34.1. Coagulation reviewed. Chemistry reviewed. AST and ALT within normal limits. Urinalysis within normal limits. Toxicology, no benzodiazepines, acetaminophen less than 10. Serology reviewed. RPR is negative. MENTAL STATUS EXAMINATION: The patient appears to be paranoid, guarded, superficially cooperative. Intense eye contact. The patient has some psychomotor retardation. Mood described as depressed and hopeless. Affect was constricted. Mood congruent. Thought process seems to be concrete. Thought content, patient is obviously guarded, paranoid, status post suicidal attempt as per the patient. Insight and judgment seems to be limited, but improving. Impulses are well controlled so far. IMPRESSION: As per history, schizophrenia versus schizoaffective, status post overdose on medication, self-reported but urine drug screen is negative for any benzodiazepines. PLAN: Obviously, the patient needs further evaluation and stabilization, medication resumption. Medications were confirmed by [facility], will resume Abilify, will consider to start antidepressant. The patient required further evaluation with psychiatric consultation. The patient was willing to sign herself in. Family should be involved. Collateral information will be obtained. The patient is not psychiatrically cleared. As soon as the patient will be feeling better from the medical standpoint, will consider to transfer her to the psychiatric inpatient unit. The patient is currently on one-to-one observation for disorganized behavior as well as status post suicidal attempt. Thank you very much for letting me participate in care of your patient. Claire Rhodaes MD
== END 2017-06-15 18:03 | DRG 449 ==
LOC: ED 17:47 → ERH 20:44 → OBSVTOIN 20:44 → ERH 21:39 → ICU 23:32 → 5RNO 06-14 09:00
PROVIDERS: ADMIT Internal Medicine; ATTEND Internal Medicine
DX: T42.4X2A Poisoning by benzodiazepines, intentional self-harm, initial encounter (principal); F25.9 Schizoaffective disorder, unspecified; R45.851 Suicidal ideations; F31.9 Bipolar disorder, unspecified; F41.9 Anxiety disorder, unspecified; E66.9 Obesity, unspecified; R41.83 Borderline intellectual functioning; D35.2 Benign neoplasm of pituitary gland; R40.2412 Glasgow coma scale score 13-15, at arrival to emergency department; Z68.36 Body mass index [BMI] 36.0-36.9, adult

== ENCOUNTER 2017-06-15 18:00 | Inpatient (IN) | payer MEDICAID, OTHER ==
--- NOTE | 2017-06-15 19:04 | PCM.BM ---
<Karen Zamorano - Last Filed: 06/15/17 19:01> Treatment Plan Problems - Problems identified on initial assessmt INEFFECTIVE COPING SKILLS Date Initiated: 06/15/17 Time Initiated: 19:00 Assessment reference: NA Status: Active Priority: 1 HOPELESS/HELPLESS Date Initiated: 06/15/17 Time Initiated: 19:00 Assessment reference: NA Status: Active Priority: 2 SOCIAL ISOLATION Date Initiated: 06/15/17 Time Initiated: 19:00 Assessment reference: NA Status: Active Priority: 3 NUTRITION MORE THAN BODY REQUIREMENT Date Initiated: 06/15/17 Time Initiated: 19:00 Assessment reference: NA Priority: 4 Treatment assets and liabiliti Patient Assests: cooperative, ADL independent, physically healthy, cognitively intact Patient Liabilities: financial problems, relationship conflicts - Milieu Protocol Maintain good personal hygiene: daily Encourage regular showers, daily Remind patient to perform daily oral care, daily Assist patient to perform ADL's Maintain personal safety: every shift Educate patient to report safety concerns to staff, every shift Monitor environment for contraband/sharps Medication safety: Monitor for expected outcome, potential side effects: every shift, Assess barriers to learning: every shift, Assess readiness for medication education: every shift Discharge/Continuing Care - Education Needs Education Needs: Patient Medication, Patient Diagnosis/Disease Process, Patient Coping Skills, Patient Anger Management skills, Patient Placement options, Patient Community resources, Patient Activities of Daily Living, Patient Nutrition, Patient Health Practices/Safety, Patient Personal Hygiene/Grooming, Patient Aftercare Safety Plan - Discharge Discharge Criteria: Tolerates medication w/o severe side effects, Free of Suicidal thoughts, Free of paranoid thoughts, Free of agitation, Normal sleep pattern, Ability to care for self, Reduction of target symptoms Discharge to:: Home <Claire Rhoades - Last Filed: 06/16/17 14:23> - Diagnosis (1) Schizoaffective disorder, depressive type Status: Chronic Interventions: 06/16/17 14:24 Psychoeducation/psychotherapy Psychopharmacology/adjustment of medications as needed/ monitoring possible side effects Evaluate pt on daily basis Compliance with medications and follow up appointments Long acting medication if pt is noncompliant with pill form Suicide and homicide risk assessment and prevention, coping strategies, safety plan Relapse prevention Reduction of symptoms Improve functional status Possible assertive community treatment Cognitive behavioral therapy Family involvement Possible social skill training as outpatient <Lotus Snyder - Last Filed: 06/17/17 12:05> Family Contact - Outside Agency [facility] Care involvment: Information-sharing Agency contact name: [facility] Agency contact number: [phone] <Remedios Dodge - Last Filed: 06/17/17 14:57> Family Contact Family involvement: Family/SO is involved Family contact: Patient agrees to contact Family contact name: Saira Aguila(mother) [phone] Family contacted how many times per week?: 2
[2017-06-15] MEDS ORDERED: Magnesium Hydroxide Susp 30 ml UD PO PRN (19:44)
[2017-06-16] MEDS: Pantoprazole 40 mg EC Tab PO SCH (08:17)
[2017-06-16 09:06] LABS: FREE T4 0.82 ng/dL (0.78-2.19)
[2017-06-16 09:29] LABS: HDL CHOLESTEROL 54 mg/dL (29-60)
[2017-06-16 09:41] LABS: LDL CHOLESTEROL 78 mg/dL (0-129)
[2017-06-16] MEDS ORDERED: OLANZapine 5 mg Disintegrating Tab PO STA (13:11)
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
[2017-06-16] MEDS: Divalproex 500 mg DR(BID formulation) PO SCH ×2 (17:05→17:37)
[2017-06-16] MEDS: OLANZapine 5 mg Disintegrating Tab PO SCH (21:50)
[2017-06-17] MEDS: Pantoprazole 40 mg EC Tab PO SCH (05:29)
[2017-06-17] MEDS: Divalproex 500 mg DR(BID formulation) PO SCH (09:21)
[2017-06-17] MEDS: OLANZapine 5 mg Disintegrating Tab PO SCH ×2 (11:06→21:34)
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
[2017-06-18] MEDS: Pantoprazole 40 mg EC Tab PO SCH (09:12)
[2017-06-18] MEDS: OLANZapine 5 mg Disintegrating Tab PO SCH ×2 (09:12→21:09)
--- NOTE | 2017-06-18 11:37 | PCM.PYCHPN ---
Psychiatric Progress Note - Psychiatric Progress Note Patient seen today, length of contact: 30min Patient Chief Complaint: "I wanted to leave because I was fighting over food..." Problems Identified/Issues Discussed: Suicide/ homicide prevention, past psychiatric h/o, current psychiatric symptoms , medical problems, risk/benefits and alternatives of medications, medications compliance, coping strategies, substance abuse h/o, relapse prevention, importance of follow up with psychiatrist and therapist, discharge plan. Medical Problems: h/o prolactinoma Diagnostic Results: Lab Results 06/16/17 08:00: Free T4 0.82, TSH 3rd Generation 2.03 06/16/17 08:00: RPR Nonreactive 06/16/17 07:30: Triglycerides 79, Cholesterol 150, LDL Cholesterol Direct 78, HDL Cholesterol 54 Vital Signs Temp Pulse Resp BP 06/17/17 09:42 98.6 F 75 15 91/56 L 06/16/17 15:00 71 92/56 L 06/16/17 06:22 97.9 F 76 20 99/59 L Temp Pulse Resp BP Pulse Ox 98.1 F 77 20 112/77 06/18/17 07:33 06/18/17 07:33 06/18/17 07:33 06/18/17 07:33 DSM 5 Symptoms Update: Shortly pt is 21yo Female with h/o psychosis/schizophrenia, multiple previous psychiatric admission to this facility most recent was in March 2017 and about two years ago, patient has h/o noncompliance with medications, follow up appointments, patient was admitted to ICU s/p self reported overdose on meds (of note UDS was negative for benzos she claimed od on it), pt was seen by this report writer on the medical floor, was offered psych admission, pt was transferred uneventfully yesterday. considering the fact pt OD on meds, claimed that she wanted to end up her life, pt needs to be stabilized on psych unit. patient was seen in her room, pt is emotionally labile, was arguing over food earlier, wanted to be d/c as soon as possible, pt signed 48hr notice, but pt changed her mind wants to stay here in [place] and rescinded it. pt at times could be irritable, but not agitated, at the first day of admission pt slammed the door towards this report writer. pt reported to be depressed, at times hopeless, mood liability is obvious, pt also has strong borderline personality traits, at the same time pt has paranoia , disorganized thoughts and impulsive and agitated behavior. pt refused to take depakote said that "it is a horse pill, I don't want that", it was d/c. so far pt tolerates meds well, no side effects observed or reported, AIMS 0, no EPS. Impression: schizophrenia Medication Change: Yes (Prozac started) Medical Record Reviewed: Yes Mental Status Examination - Cognitive Function Orientation: Person, Place, Situation Memory: Intact Attention: Poor Concentration: Poor Association: Loose Fund of Knowledge: Poor - Mood Mood: Depressed - Affect Affect: Flat - Formal Thought Process Formal Thought Process: Hallucinations (pt denied, but appeared to be internally preoccupied), Delusions, Paranoia, Loosening of associations - Suicidal Ideation Suicidal Ideation: No - Homicidal Ideation Homicidal Ideation: No Goal/Treatment Plan - Goal/Treatment Plan Need for Continued Stay: Remain at risks for inpatient hospitalization, Severe depression anxiety, Discharge may exacerbated symptoms, Severe functional impairment Progress Toward Problem(s) and Goals/Treatment Plan: Milieu/structure/supportive therapy Medical consult will be called if needed SW consultation for discharge plan and social issues Med management meds confirmed by pharmacy, most likely pt run short on meds, last time pt filled it was 05/08/17-05/11/17 ARIPiprazole [Abilify] 5 mg PO AMHS h/o prolactinoma LORazepam [Ativan] 1 mg PO BID OLANZapine [Zyprexa Zydis] 5mg bid prozac 20mg po daily for depression/anxiety/borderline personality [Sonata] 5 mg PO HS PRN insomnia Ziprasidone [Geodon Inj] 20 mg IM TID PRN Family involvement Follow up on labs Will monitor closely Pt was educated about risk/benefits and alternatives of medications, coping strategies (safety plan, suicide prevention), relapse prevention, importance of follow up with psychiatrist and therapist, stay away from drugs/alcohol/smoking Estimated Date of D/C: 06/22/17
[2017-06-18] MEDS: Alum-Mag Hydrox-Simethicone Susp (30 mL) PO PRN (21:09)
[2017-06-19] MEDS: Pantoprazole 40 mg EC Tab PO SCH (06:27)
[2017-06-19] MEDS: OLANZapine 5 mg Disintegrating Tab PO SCH ×2 (09:03→21:31)
--- NOTE | 2017-06-19 12:17 | PCM.PYCHPN ---
Psychiatric Progress Note - Psychiatric Progress Note Patient seen today, length of contact: 25 min Patient Chief Complaint: "better" Problems Identified/Issues Discussed: I reviewed admission assessment. Patient is 21yo Female with h/ o psychosis/schizophrenia, Borderline Personality Disorder, multiple prior psychiatric admissions to this facility-- most recent was in March 2017 and another admission approximately two years ago, + h/o noncompliance with medications, follow up appointments who was transferred from the ICU s/p self reported overdose on meds (of note UDS was negative for benzos that she reportedly overdosed on). I reviewed recent notes. Patient was irritable and impulsive when she first arrived on the unit. Notes indicate that she had been argumentative over food and refused to take Depakote. She still refuses to take Depakote but has been calmer on the unit in the last day or so. Staff have noted that patient is more visible and social with peers. She is tolerating group therapy. Patient also retracted a 48 hour notice that she placed earlier. Patient was cooperative when I met with her in the dayroom. She is groomed and oriented x3. Affect is dysphoric. Patient reports that she is feeling a little better, she is no longer suicidal. Feels her emotions and impulses are in better control. Patient is sleeping well and tolerating her medications. Denies any new pain at this time. Her thought process is coherent and she denies any hallucinations or paranoid thoughts. There were no behavioral issues overnight. Diagnostic Results: Schizophrenia Medication Change: Yes (Prozac started) Medical Record Reviewed: Yes Mental Status Examination - Cognitive Function Orientation: Person, Place, Situation Memory: Intact Attention: WNL Concentration: Poor Association: Loose Fund of Knowledge: Poor - Mood Mood: Depressed - Affect Affect: Flat (dysphoric) - Speech Speech: Appropriate - Formal Thought Process Formal Thought Process: Hallucinations (pt denied, but appeared to be internally preoccupied), Delusions, Paranoia, Loosening of associations - Suicidal Ideation Suicidal Ideation: No - Homicidal Ideation Homicidal Ideation: No Goal/Treatment Plan - Goal/Treatment Plan Need for Continued Stay: Remain at risks for inpatient hospitalization, Severe depression anxiety, Discharge may exacerbated symptoms, Severe functional impairment Progress Toward Problem(s) and Goals/Treatment Plan: * c/w current tx and plan * No new labs today thus far * Vitals reviewed and noted below: Selected Entries 06/19/17 06:48 Temperature 97.8 F Pulse Rate 64 Respiratory 20 Rate Blood Pressure 116/65 Estimated Date of D/C: 06/22/17
[2017-06-19] MEDS: Alum-Mag Hydrox-Simethicone Susp (30 mL) PO PRN (19:38)
[2017-06-20] MEDS: Pantoprazole 40 mg EC Tab PO SCH (06:38)
[2017-06-20] MEDS: Alum-Mag Hydrox-Simethicone Susp (30 mL) PO PRN (08:55)
[2017-06-20] MEDS: OLANZapine 5 mg Disintegrating Tab PO SCH ×2 (09:19→21:31)
--- NOTE | 2017-06-20 10:04 | PCM.PYCHPN ---
Psychiatric Progress Note - Psychiatric Progress Note Patient seen today, length of contact: 25 min Patient Chief Complaint: "better" Problems Identified/Issues Discussed: I reviewed admission assessment. Patient is 21yo Female with h/ o psychosis/schizophrenia, Borderline Personality Disorder, multiple prior psychiatric admissions to this facility-- most recent was in March 2017 and another admission approximately two years ago, + h/o noncompliance with medications, follow up appointments who was transferred from the ICU s/p self reported overdose on meds (of note UDS was negative for benzos that she reportedly overdosed on). I reviewed admission assessment. Patient is 21yo Female with h/ o psychosis/schizophrenia, Borderline Personality Disorder, multiple prior psychiatric admissions to this facility-- most recent was in March 2017 and another admission approximately two years ago, + h/o noncompliance with medications, follow up appointments who was transferred from the [facility] s/p self reported overdose on meds (of note UDS was negative for benzos that she reportedly overdosed on). I reviewed recent notes. Patient was irritable and impulsive when she arrived on the unit however has been in much better control in the past 48 hours. Brighter, calmer and better groomed. She is cooperative during my questioning, affect is still constricted but more reactive. Remains oriented x3. Thought process is coherent. Patient reports that she feels a lot better and that she is hopeful about things. States the medications are beneficial and the support of her friends (who visit her on the unit) has meant a lot to her. Patient denies any new discomfort or pain. Physically she is feeling and looking healthier on the unit. Staff have noted that patient can be social with peers and participates in group therapy. There were no behavioral issues overnight. Diagnostic Results: Schizophrenia Medication Change: Yes (Prozac started) Medical Record Reviewed: Yes Mental Status Examination - Cognitive Function Orientation: Person, Place, Situation Memory: Intact Attention: WNL Concentration: Poor Association: Loose Fund of Knowledge: Poor - Mood Mood: Depressed ("better mood") - Affect Affect: Constricted (more reactive ) - Speech Speech: Appropriate - Formal Thought Process Formal Thought Process: Hallucinations (denied), Delusions, Paranoia, Loosening of associations - Suicidal Ideation Suicidal Ideation: No - Homicidal Ideation Homicidal Ideation: No Goal/Treatment Plan - Goal/Treatment Plan Need for Continued Stay: Remain at risks for inpatient hospitalization, Severe depression anxiety, Discharge may exacerbated symptoms, Severe functional impairment Progress Toward Problem(s) and Goals/Treatment Plan: * c/w current tx and plan * No new labs thus far this weekend * Vitals reviewed and noted below: Selected Entries 06/20/17 07:21 Temperature 98.1 F Pulse Rate 96 H Respiratory 20 Rate Blood Pressure 102/70 Estimated Date of D/C: 06/22/17
[2017-06-21] MEDS: Pantoprazole 40 mg EC Tab PO SCH (08:46)
[2017-06-21] MEDS: OLANZapine 5 mg Disintegrating Tab PO SCH ×2 (09:03→21:13)
--- NOTE | 2017-06-21 10:04 | PCM.PYCHPN ---
Psychiatric Progress Note - Psychiatric Progress Note Patient seen today, length of contact: 25 min Patient Chief Complaint: "better" Problems Identified/Issues Discussed: I have reviewed admission assessment. Patient is 21 yo Female with h/o psychosis/schizophrenia, Borderline Personality Disorder, multiple prior psychiatric admissions to this facility-- most recent was in March 2017 and another admission approximately two years ago, + h/o noncompliance with medications, follow up appointments who was transferred from the [facility] s/p self reported overdose on meds (of note UDS was negative for benzos that she reportedly overdosed on). I reviewed recent notes. Patient was irritable and impulsive when she arrived on the unit however has been in much better control in the past 72 hours. Brighter, calmer and better groomed. She is cooperative during my questioning, affect is still constricted but more reactive. Remains well-oriented x3 and thought process is coherent. Patient consistently reports that she feels a lot better and that she is "hopeful about things". States the medications are beneficial and the support of her family and friends (who visit her on the unit ) has meant a lot to her. Patient denies any new discomfort or pain. Upset stomach from earlier this weekend isn't bothering her anymore. Physically she is feeling and looking healthier on the unit. She reports that she is feeling more and more prepared for eventual discharge. Staff have noted that patient can be social with peers and participates in group therapy. There were no behavioral issues over the weekend. Diagnostic Results: Schizophrenia Medication Change: Yes (Prozac started) Medical Record Reviewed: Yes Mental Status Examination - Cognitive Function Orientation: Person, Place, Situation Memory: Intact Attention: WNL Concentration: WNL Association: Loose Fund of Knowledge: Poor - Mood Mood: Depressed ("better mood") - Affect Affect: Constricted (more reactive ) - Speech Speech: Appropriate - Formal Thought Process Formal Thought Process: Hallucinations (denied all weekend, goal directed and coherent), Delusions (none elicited all weekend), Paranoia - Suicidal Ideation Suicidal Ideation: No - Homicidal Ideation Homicidal Ideation: No Goal/Treatment Plan - Goal/Treatment Plan Need for Continued Stay: Remain at risks for inpatient hospitalization, Severe depression anxiety, Discharge may exacerbated symptoms, Severe functional impairment Progress Toward Problem(s) and Goals/Treatment Plan: * c/w current tx and plan * No new labs this weekend * Vitals reviewed and noted below: 06/21/17 06:54 Temperature 97.7 F Pulse Rate 60 Respiratory 18 Rate Blood Pressure 99/60 L Estimated Date of D/C: 06/22/17
[2017-06-21] MEDS: Alum-Mag Hydrox-Simethicone Susp (30 mL) PO PRN (21:14)
[2017-06-22] MEDS: Pantoprazole 40 mg EC Tab PO SCH (06:46)
[2017-06-22] MEDS: OLANZapine 5 mg Disintegrating Tab PO SCH ×2 (09:00→21:05)
--- NOTE | 2017-06-22 15:54 | PCM.PYCHPN ---
Psychiatric Progress Note - Psychiatric Progress Note Patient seen today, length of contact: 30min Patient Chief Complaint: "I am feeling better, people treating me nicely" Problems Identified/Issues Discussed: Suicide/ homicide prevention, past psychiatric h/o, current psychiatric symptoms , medical problems, risk/benefits and alternatives of medications, medications compliance, coping strategies, substance abuse h/o, relapse prevention, importance of follow up with psychiatrist and therapist, discharge plan. Medical Problems: h/o prolactinoma Diagnostic Results: Lab Results 06/16/17 08:00: Free T4 0.82, TSH 3rd Generation 2.03 06/16/17 08:00: RPR Nonreactive 06/16/17 07:30: Triglycerides 79, Cholesterol 150, LDL Cholesterol Direct 78, HDL Cholesterol 54 Vital Signs Temp Pulse Resp BP 06/17/17 09:42 98.6 F 75 15 91/56 L 06/16/17 15:00 71 92/56 L 06/16/17 06:22 97.9 F 76 20 99/59 L Temp Pulse Resp BP Pulse Ox 98.1 F 77 20 112/77 06/18/17 07:33 06/18/17 07:33 06/18/17 07:33 06/18/17 07:33 Temp Pulse Resp BP Pulse Ox 97.6 F 67 18 98/60 L 06/22/17 06:59 06/22/17 06:59 06/22/17 06:59 06/22/17 06:59 DSM 5 Symptoms Update: Shortly pt is 21yo Female with h/o psychosis/schizophrenia, multiple previous psychiatric admission to this facility most recent was in March 2017 and about two years ago, patient has h/o noncompliance with medications, follow up appointments, patient was admitted to ICU s/p self reported overdose on meds (of note UDS was negative for benzos she claimed od on it), pt was seen by this continuity writer on the medical floor, was offered psych admission, pt was transferred uneventfully yesterday. considering the fact pt OD on meds, claimed that she wanted to end up her life, pt needs to be stabilized on psych unit. patient was next to the nursing station, pt presented with some improvements, pt is less guarded, more pleasant, no agitation or aggression. pt compliant with meds, pt is socially appropriate. last week pt was emotionally labile, was arguing over food, now pt is approaching her baseline of functioning. SW obtained collaterals from mother, pt was never "kicked out" from the house, pt will be welcomed back home. family meeting requested. so far pt tolerates meds well, no side effects observed or reported, AIMS 0, no EPS. Impression: schizophrenia Medication Change: Yes (Prozac increased) Medical Record Reviewed: Yes Mental Status Examination - Cognitive Function Orientation: Person, Place, Situation Memory: Intact Attention: WNL Concentration: WNL Association: Loose Fund of Knowledge: Poor - Mood Mood: Depressed ("better mood") - Affect Affect: Constricted (more reactive ) - Speech Speech: Appropriate - Formal Thought Process Formal Thought Process: Hallucinations (denied all weekend, goal directed and coherent), Delusions (none elicited all weekend), Paranoia - Suicidal Ideation Suicidal Ideation: No - Homicidal Ideation Homicidal Ideation: No Goal/Treatment Plan - Goal/Treatment Plan Need for Continued Stay: Remain at risks for inpatient hospitalization, Severe depression anxiety, Discharge may exacerbated symptoms, Severe functional impairment Progress Toward Problem(s) and Goals/Treatment Plan: Milieu/structure/supportive therapy Medical consult will be called if needed consultation for discharge plan and social issues Med management meds confirmed by pharmacy, most likely pt run short on meds, last time pt filled it was 05/08/17-05/11/17 ARIPiprazole [Abilify] 5 mg PO AMHS h/o prolactinoma LORazepam [Ativan] 1 mg PO BID OLANZapine [Zyprexa Zydis] 5mg bid prozac 20mg po daily for depression/anxiety/borderline personality [Sonata] 5 mg PO HS PRN insomnia Ziprasidone [Geodon Inj] 20 mg IM TID PRN Family involvement Follow up on labs Will monitor closely Pt was educated about risk/benefits and alternatives of medications, coping strategies (safety plan, suicide prevention), relapse prevention, importance of follow up with psychiatrist and therapist, stay away from drugs/alcohol/smoking Estimated Date of D/C: 06/24/17
[2017-06-22] MEDS: Alum-Mag Hydrox-Simethicone Susp (30 mL) PO PRN (21:06)
[2017-06-23] MEDS: Pantoprazole 40 mg EC Tab PO SCH (06:45)
[2017-06-23 07:32] VITALS: RESP 20; TEMP 97.9
[2017-06-23] MEDS: OLANZapine 5 mg Disintegrating Tab PO SCH ×2 (09:12→21:25)
--- NOTE | 2017-06-23 10:50 | PCM.PYCHPN ---
Psychiatric Progress Note - Psychiatric Progress Note Patient seen today, length of contact: 30min Patient Chief Complaint: "I am feeling better, people treating me nicely" Problems Identified/Issues Discussed: Suicide/ homicide prevention, past psychiatric h/o, current psychiatric symptoms , medical problems, risk/benefits and alternatives of medications, medications compliance, coping strategies, substance abuse h/o, relapse prevention, importance of follow up with psychiatrist and therapist, discharge plan. Medical Problems: h/o prolactinoma Diagnostic Results: Lab Results 06/16/17 08:00: Free T4 0.82, TSH 3rd Generation 2.03 06/16/17 08:00: RPR Nonreactive 06/16/17 07:30: Triglycerides 79, Cholesterol 150, LDL Cholesterol Direct 78, HDL Cholesterol 54 Vital Signs Temp Pulse Resp BP 06/17/17 09:42 98.6 F 75 15 91/56 L 06/16/17 15:00 71 92/56 L 06/16/17 06:22 97.9 F 76 20 99/59 L Temp Pulse Resp BP Pulse Ox 98.1 F 77 20 112/77 06/18/17 07:33 06/18/17 07:33 06/18/17 07:33 06/18/17 07:33 Temp Pulse Resp BP Pulse Ox 97.6 F 67 18 98/60 L 06/22/17 06:59 06/22/17 06:59 06/22/17 06:59 06/22/17 06:59 DSM 5 Symptoms Update: Shortly pt is 21yo Female with h/o psychosis/schizophrenia, multiple previous psychiatric admission to this facility most recent was in March 2017 and about two years ago, patient has h/o noncompliance with medications, follow up appointments, patient was admitted to ICU s/p self reported overdose on meds (of note UDS was negative for benzos she claimed od on it), pt was seen by this job specification writer on the medical floor, was offered psych admission, pt was transferred uneventfully yesterday. considering the fact pt OD on meds, claimed that she wanted to end up her life, pt needs to be stabilized on psych unit. patient was at the dinning area, pt presented with some improvements, pt is less guarded, more pleasant, no agitation or aggression. pt is not fighting over food, pt participates in unit activities. pt compliant with meds, pt is socially appropriate. last week pt was emotionally labile, was arguing over food, slamming doors towards people, was agitated, irritable, angry. SW obtained collaterals from mother, pt was never "kicked out" from the house, pt will be welcomed back home. family meeting requested, SW was notified, possible phone conference call so far pt tolerates meds well, no side effects observed or reported, AIMS 0, no EPS. Impression: schizophrenia Medication Change: Yes (Prozac increased yesterday) Medical Record Reviewed: Yes Mental Status Examination - Cognitive Function Orientation: Person, Place, Situation Memory: Intact Attention: WNL Concentration: WNL Association: Loose Fund of Knowledge: Poor - Mood Mood: Depressed ("better mood") - Affect Affect: Constricted (more reactive ) - Speech Speech: Appropriate - Formal Thought Process Formal Thought Process: Hallucinations (denied all weekend, goal directed and coherent), Delusions (none elicited all weekend), Paranoia - Suicidal Ideation Suicidal Ideation: No - Homicidal Ideation Homicidal Ideation: No Goal/Treatment Plan - Goal/Treatment Plan Need for Continued Stay: Remain at risks for inpatient hospitalization, Severe depression anxiety, Discharge may exacerbated symptoms, Severe functional impairment Progress Toward Problem(s) and Goals/Treatment Plan: Milieu/structure/supportive therapy Medical consult will be called if needed SHANNA consultation for discharge plan and social issues Med management meds confirmed by pharmacy, most likely pt run short on meds, last time pt filled it was 05/08/17-05/11/17 ARIPiprazole [Abilify] 5 mg PO AMHS h/o prolactinoma LORazepam [Ativan] 1 mg PO BID OLANZapine [Zyprexa Zydis] 5mg bid prozac 20mg po daily for depression/anxiety/borderline personality [Sonata] 5 mg PO HS PRN insomnia Ziprasidone [Geodon Inj] 20 mg IM TID PRN Family involvement Follow up on labs Will monitor closely Pt was educated about risk/benefits and alternatives of medications, coping strategies (safety plan, suicide prevention), relapse prevention, importance of follow up with psychiatrist and therapist, stay away from drugs/alcohol/smoking Estimated Date of D/C: 06/24/17
[2017-06-23] MEDS: Alum-Mag Hydrox-Simethicone Susp (30 mL) PO PRN (21:28)
[2017-06-24] MEDS: Pantoprazole 40 mg EC Tab PO SCH (05:43)
[2017-06-24 07:13] VITALS: BP 125/73; PULSE 98
[2017-06-24] MEDS: OLANZapine 5 mg Disintegrating Tab PO SCH (09:07)
--- NOTE | 2017-06-24 11:31 | PCM.BM ---
<Anitha Tavares - Last Filed: 06/24/17 11:28> Treatment Plan Problems - Problems identified on initial assessmt INEFFECTIVE COPING SKILLS Date Initiated: 06/15/17 Time Initiated: 19:00 Assessment reference: NA Status: Active Priority: 1 HOPELESS/HELPLESS Date Initiated: 06/15/17 Time Initiated: 19:00 Assessment reference: NA Status: Active Priority: 2 SOCIAL ISOLATION Date Initiated: 06/15/17 Time Initiated: 19:00 Assessment reference: NA Status: Active Priority: 3 NUTRITION MORE THAN BODY REQUIREMENT Date Initiated: 06/15/17 Time Initiated: 19:00 Assessment reference: NA Priority: 4 Treatment assets and liabiliti Patient Assests: cooperative, ADL independent, physically healthy, cognitively intact Patient Liabilities: financial problems, relationship conflicts - Milieu Protocol Maintain good personal hygiene: daily Encourage regular showers, daily Remind patient to perform daily oral care, daily Assist patient to perform ADL's Maintain personal safety: every shift Educate patient to report safety concerns to staff, every shift Monitor environment for contraband/sharps Medication safety: Monitor for expected outcome, potential side effects: every shift, Assess barriers to learning: every shift, Assess readiness for medication education: every shift Milieu Narrative: Milieu/structure/supportive therapy Medical consult will be called if needed SW consultation for discharge plan and social issues Med management meds confirmed by pharmacy, most likely pt run short on meds, last time pt filled it was 05/08/17-05/11/17 ARIPiprazole [Abilify] 5 mg PO AMHS h/o prolactinoma LORazepam [Ativan] 1 mg PO BID OLANZapine [Zyprexa Zydis] 5mg bid prozac 20mg po daily for depression/anxiety/borderline personality [Sonata] 5 mg PO HS PRN insomnia Ziprasidone [Geodon Inj] 20 mg IM TID PRN Family involvement Follow up on labs Will monitor closely Pt was educated about risk/benefits and alternatives of medications, coping strategies (safety plan, suicide prevention), relapse prevention, importance of follow up with psychiatrist and therapist, stay away from drugs/alcohol/smoking Family Contact Family involvement: Family/SO is involved Family contact: Patient agrees to contact Family contact name: Saira Aguila(mother) [phone] Family contacted how many times per week?: 2 - Outside Agency [facility] Care involvment: Information-sharing Agency contact name: [facility] Agency contact number: [phone] Discharge/Continuing Care - Education Needs Education Needs: Patient Medication, Patient Diagnosis/Disease Process, Patient Coping Skills, Patient Anger Management skills, Patient Placement options, Patient Community resources, Patient Activities of Daily Living, Patient Nutrition, Patient Health Practices/Safety, Patient Personal Hygiene/Grooming, Patient Aftercare Safety Plan - Discharge Discharge Criteria: Tolerates medication w/o severe side effects, Free of Suicidal thoughts, Free of paranoid thoughts, Free of agitation, Normal sleep pattern, Ability to care for self, Reduction of target symptoms Discharge to:: Home - Treatment Team Participation Patient/Family/SO Statement: Milieu/structure/supportive therapy Medical consult will be called if needed SW consultation for discharge plan and social issues Med management meds confirmed by pharmacy, most likely pt run short on meds, last time pt filled it was 05/08/17-05/11/17 ARIPiprazole [Abilify] 5 mg PO AMHS h/o prolactinoma LORazepam [Ativan] 1 mg PO BID OLANZapine [Zyprexa Zydis] 5mg bid prozac 20mg po daily for depression/anxiety/borderline personality [Sonata] 5 mg PO HS PRN insomnia Ziprasidone [Geodon Inj] 20 mg IM TID PRN Family involvement Follow up on labs Will monitor closely Pt was educated about risk/benefits and alternatives of medications, coping strategies (safety plan, suicide prevention), relapse prevention, importance of follow up with psychiatrist and therapist, stay away from drugs/alcohol/smoking Treatment Plan Review Patient participation: Yes - Problem INEFFECTIVE COPING SKILLS Date Initiated: 06/24/17 Time Initiated: 10:30 Progress toward outcomes: improved HOPELESS/HELPLESS Date Initiated: 06/24/17 Time Initiated: 10:30 Progress toward outcomes: resolved Date resolved: 06/24/17 SOCIAL ISOLATION Date Initiated: 06/24/17 Time Initiated: 10:30 Progress toward outcomes: resolved Date resolved: 06/24/17 NUTRITION MORE THAN BODY REQUIREMENT Date Initiated: 06/24/17 Time Initiated: 10:30 Progress toward outcomes: unchanged <Claire hRoades - Last Filed: 06/24/17 15:23> - Diagnosis (1) Schizoaffective disorder, depressive type Status: Chronic Interventions: 06/24/17 15:23 patient improved significantly Patient compliant with the medication No aggression or agitation, discussed with self as well as patient mother, patient deemed ready for discharge, patient was able to identify stressors as well as coping improved, patient wants to get better, patient denied thoughts of harming herself or others willing to be followed up with outpatient program. <Remedios Dodge Y - Last Filed: 06/24/17 16:14> Family Contact Family involvement: Family/SO is involved Family contact: Patient agrees to contact Family contact name: Saira Aguila(mother) Family contacted how many times per week?: 2
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
== END 2017-06-24 16:29 | disposition home or self-care (01) | DRG 430 ==
LOC: PSYC 18:00
PROVIDERS: ADMIT Psychiatry & Neurology Psychiatry; ATTEND Psychiatry & Neurology Psychiatry
DX: F25.1 Schizoaffective disorder, depressive type (principal); F41.9 Anxiety disorder, unspecified; F60.3 Borderline personality disorder; Z79.899 Other long term (current) drug therapy; Z91.14 Patient's other noncompliance with medication regimen; G47.00 Insomnia, unspecified